=== PATIENT | male | born 1960 | race Caucasian/White ===

== ENCOUNTER 2017-02-10 12:56 | Emergency (ER) | payer MEDICAID ==
[2017-02-10 13:16] VITALS: BP 128/79
[2017-02-10] MEDS ORDERED: Sodium Chloride 0.9% 10 ML Syringe FLUSH PRN (13:31)
[2017-02-10] MEDS ORDERED: MVI, Adult with Vitamin K 10 ML, Thiamine 100 MG, Folic Acid 1 MG in Lactated Ringers 1... IV ONE ×4 (13:32)
[2017-02-10] MEDS ORDERED: LORazepam 2 MG/ML Syringe IVPUSH ONE (13:32)
--- NOTE | 2017-02-10 13:33 | EDM.PDOCBH ---
ED HPI GENERAL MEDICAL PROBLEM - General Chief Complaint: Drug or Alcohol Abuse Stated Complaint: BY AMBULANCE Time Seen by Provider: 02/10/17 13:33 Source of Information: Reports: Patient, RN, RN Notes Reviewed History Limitations: Reports: No Limitations - History of Present Illness INITIAL COMMENTS - FREE TEXT/NARRATIVE: Patient presented with complaint of alcohol withdrawal. He states that he had a "legal consequence" and decided that he needed to quit drinking so he decided to discontinue alcohol. He developed withdrawal symptoms at home yesterday with withdrawal seizure today. He does not recall the seizure, but states that his found him on the floor confused with dry white foam around his mouth. He states that he felt similar to what he had felt to seizure similar in the past so he drank several beers and decided to come to the ER because he still had tremors. Quality: Reports: Same as Previous Episode Severity: Severe Improves with: Reports: None Worsens with: Reports: None Associated Symptoms: Reports: No Other Symptoms - Related Data Allergies Allergy/AdvReac Type Severity Reaction Status Date / Time No Known Allergies Allergy Verified 02/20/14 14:45 Past Medical History HEENT History: Reports: Impaired Vision - Past Surgical History GI Surgical History: Reports: Appendectomy, Hernia Repair/Other Social & Family History - Tobacco Use Smoking Status *Q: Current Every Day Smoker Years of Tobacco use: 40 Packs/Tins Daily: 1 Second Hand Smoke Exposure: Yes - Caffeine Use Caffeine Use: Reports: Soda - Alcohol Use Days Per Week of Alcohol Use: 7 Number of Drinks Per Day: 12 Total Drinks Per Week: 84 - Recreational Drug Use Recreational Drug Use: No Drug Use in Last 12 Months: Yes Recreational Drug Type: Reports: Marijuana/Hashish Recreational Drug Use Frequency: Weekly ED ROS GENERAL - Review of Systems Review Of Systems: ROS reveals no pertinent complaints other than HPI. ED EXAM, BEHAVIORAL HEALTH - Physical Exam Exam: See Below Exam Limited By: No Limitations General Appearance: Alert, WD/WN, No Apparent Distress Eye Exam: Bilateral Eye: Normal Inspection Ears: Normal External Exam, Normal Canal, Hearing Grossly Normal, Normal TMs Nose: Normal Inspection, Normal Mucosa, No Blood Throat/Mouth: Other (dry oral membranes) Head: Atraumatic, Normocephalic Neck: Normal Inspection, Supple, Non-Tender, Full Range of Motion Respiratory/Chest: No Respiratory Distress, Lungs Clear, Normal Breath Sounds, No Accessory Muscle Use, Chest Non-Tender Cardiovascular: Regular Rate, Rhythm, Tachycardia GI/Abdominal: Normal Bowel Sounds, Soft, Non-Tender, No Organomegaly, No Distention, No Abnormal Bruit, No Mass (Male) Exam: Deferred Rectal (Males) Exam: Deferred Back Exam: Normal Inspection, Full Range of Motion, NT Extremities: Normal Inspection, Normal Range of Motion, Non-Tender, Normal Capillary Refill, No Pedal Edema Neurological: Other (bilateral upper extremity tremor) Psychiatric: Alert, Normal Affect, Normal Cognition, Normal Mood, Oriented Skin Exam: Warm, Dry, Intact, Normal color, No rash COURSE, BEHAVIORAL HEALTH COMP - Course Vital Signs: Last Vital Signs Temp 36.4 C 02/10/17 13:15 Pulse 93 02/10/17 13:15 Resp 16 02/10/17 13:15 BP 128/79 02/10/17 13:15 Pulse Ox 98 02/10/17 13:15 Orders, Labs, Meds: Active Orders 24 hr Category Date Time Status Peripheral IV Care [RC] . DIRECTED Care 02/10/17 13:32 Active Sodium Chloride 0.9% [Saline Flush] Med 02/10/17 13:31 Active 10 ml FLUSH ASDIRECTED PRN Peripheral IV Insertion Adult [OM.PC] Stat Oth 02/10/17 13:31 Ordered Medication Orders Sodium Chloride (Saline Flush) 10 ml FLUSH ASDIRECTED PRN PRN Reason: Keep Vein Open Last Admin: 02/10/17 14:04 Dose: 10 ml Laboratory Tests 02/10/17 02/10/17 02/10/17 Range/Units 13:40 13:40 13:40 WBC 6.1 (5.0-10.0) 10^3/uL RBC 4.30 L (4.6-6.2) 10^6/uL Hgb 14.9 (14.0-18.0) g/dL Hct 41.6 (40.0-54.0) % MCV 96.7 (80-100) fL MCH 34.7 H (27.0-34.0) pg MCHC 35.8 H (33.0-35.0) g/dL Plt Count 77 L (150-450) 10^3/uL Neut % (Auto) 59.7 (42.2-75.2) % Lymph % (Auto) 26.3 (20.5-50.1) % Fergus % (Auto) 13.5 H (2-8) % Eos % (Auto) 0.3 L (1.0-3.0) % Baso % (Auto) 0.2 (0.0-1.0) % PT 9.2 (9.0-12.0) SEC INR 0.9 (0.9-1.2) APTT 29.0 (22.0-34.0) SEC Sodium 131 L (135-145) mmol/L Potassium 3.5 L (3.6-5.0) mmol/L Chloride 94 L (101-111) mmol/L Carbon Dioxide 23.0 (21.0-31.0) mmol/L Anion Gap 17.5 BUN 4 L (7-18) mg/dL Creatinine 0.4 L (0.6-1.3) mg/dL Est Cr Clr Drug Dosing TNP Estimated GFR (MDRD) > 60 BUN/Creatinine Ratio 10.00 Glucose 112 H (74-105) mg/dL Calcium 8.6 (8.4-10.2) mg/dl Magnesium 1.5 L (1.8-2.5) mg/dL Total Bilirubin 1.1 H (0.2-1.0) mg/dL GGT 284 H (7-64) IU/L AST 106 H (10-42) IU/L ALT 65 H (10-60) IU/L Alkaline Phosphatase 80 (42-121) IU/L Creatine Kinase 326 H (26-174) IU/L Total Protein 7.1 (6.7-8.2) g/dl Albumin 3.9 (3.2-5.5) g/dl Globulin 3.2 Albumin/Globulin Ratio 1.22 Urine Color (YELLOW) Urine Appearance (CLEAR) Urine pH (5.0-9.0) Ur Specific Riner (1.005-1.030) Urine Protein (NEGATIVE) Urine Glucose (UA) (NEGATIVE) Urine Ketones (NEGATIVE) Urine Occult Blood (NEGATIVE) Urine Nitrite (NEGATIVE) Urine Bilirubin (NEGATIVE) Urine Urobilinogen (0.2-1.0) mg/dL Ur Leukocyte Esterase (NEGATIVE) Urine RBC /HPF Urine WBC (0-5/HPF) /HPF Urine Bacteria (0-FEW/HPF) /HPF Urine Mucus /LPF Salicylates < 4 Urine Opiates Screen (NEGATIVE) Ur Oxycodone Screen (NEGATIVE) Urine Methadone Screen (NEGATIVE) Acetaminophen < 10 Ur Barbiturates Screen (NEGATIVE) U Tricyclic Antidepress (NEGATIVE) Ur Phencyclidine Scrn (NEGATIVE) Ur Amphetamine Screen (NEGATIVE) U Methamphetamines Scrn (NEGATIVE) Urine MDMA Screen (NEGATIVE) U Benzodiazepines Scrn (NEGATIVE) Urine Cocaine Screen (NEGATIVE) U Marijuana (THC) Screen (NEGATIVE) Ethyl Alcohol 255 mg/dL 02/10/17 02/10/17 Range/Units 14:20 14:20 WBC (5.0-10.0) 10^3/uL RBC (4.6-6.2) 10^6/uL Hgb (14.0-18.0) g/dL Hct (40.0-54.0) % MCV (80-100) fL MCH (27.0-34.0) pg MCHC (33.0-35.0) g/dL Plt Count (150-450) 10^3/uL Neut % (Auto) (42.2-75.2) % Lymph % (Auto) (20.5-50.1) % Fergus % (Auto) (2-8) % Eos % (Auto) (1.0-3.0) % Baso % (Auto) (0.0-1.0) % PT (9.0-12.0) SEC INR (0.9-1.2) APTT (22.0-34.0) SEC Sodium (135-145) mmol/L Potassium (3.6-5.0) mmol/L Chloride (101-111) mmol/L Carbon Dioxide (21.0-31.0) mmol/L Anion Gap BUN (7-18) mg/dL Creatinine (0.6-1.3) mg/dL Est Cr Clr Drug Dosing Estimated GFR (MDRD) BUN/Creatinine Ratio Glucose (74-105) mg/dL Calcium (8.4-10.2) mg/dl Magnesium (1.8-2.5) mg/dL Total Bilirubin (0.2-1.0) mg/dL GGT (7-64) IU/L AST (10-42) IU/L ALT (10-60) IU/L Alkaline Phosphatase (42-121) IU/L Creatine Kinase (26-174) IU/L Total Protein (6.7-8.2) g/dl Albumin (3.2-5.5) g/dl Globulin Albumin/Globulin Ratio Urine Color Yellow (YELLOW) Urine Appearance Slightly cloudy (CLEAR) Urine pH 5.5 (5.0-9.0) Ur Specific Riner <= 1.005 (1.005-1.030) Urine Protein Negative (NEGATIVE) Urine Glucose (UA) Negative (NEGATIVE) Urine Ketones Negative (NEGATIVE) Urine Occult Blood Negative (NEGATIVE) Urine Nitrite Negative (NEGATIVE) Urine Bilirubin Negative (NEGATIVE) Urine Urobilinogen 0.2 (0.2-1.0) mg/dL Ur Leukocyte Esterase Negative (NEGATIVE) Urine RBC 0-5 /HPF Urine WBC 0-5 (0-5/HPF) /HPF Urine Bacteria Rare (0-FEW/HPF) /HPF Urine Mucus Rare /LPF Salicylates Urine Opiates Screen Negative (NEGATIVE) Ur Oxycodone Screen Negative (NEGATIVE) Urine Methadone Screen Negative (NEGATIVE) Acetaminophen Ur Barbiturates Screen Negative (NEGATIVE) U Tricyclic Antidepress Negative (NEGATIVE) Ur Phencyclidine Scrn Negative (NEGATIVE) Ur Amphetamine Screen Negative (NEGATIVE) U Methamphetamines Scrn Negative (NEGATIVE) Urine MDMA Screen Negative (NEGATIVE) U Benzodiazepines Scrn Negative (NEGATIVE) Urine Cocaine Screen Negative (NEGATIVE) U Marijuana (THC) Screen Positive H (NEGATIVE) Ethyl Alcohol mg/dL Medications Generic Name Dose Route Start Last Admin Trade Name Freq PRN Reason Stop Dose Admin Sodium Chloride 10 ml 02/10/17 13:31 02/10/17 14:04 Saline Flush FLUSH 10 ml ASDIRECTED PRN Administration Keep Vein Open Discontinued Medications Generic Name Dose Route Start Last Admin Trade Name Freq PRN Reason Stop Dose Admin Multivitamins/Minerals 10 ml/ 1,011.2 mls @ 999 mls/hr 02/10/17 13:32 14:02 Thiamine HCl 100 mg/ Folic IV 02/10/17 14:32 999 mls/hr Acid 1 mg/ Lactated Ringer's .BOLUS ONE Administration Lorazepam 2 mg 02/10/17 13:32 02/10/17 14:03 Ativan IVPUSH 02/10/17 13:33 2 mg ONETIME ONE Administration Departure - Departure Time of Disposition: 15:44 Disposition: DC/Tfer to Acute Hospital 02 Condition: Serious Clinical Impression: Seizure, Alcohol abuse, Marijuana abuse Alcohol withdrawal Qualifiers: Complication of substance-induced condition: with unspecified complication Qualified Code(s): F10.239 - Alcohol dependence with withdrawal, unspecified Alcohol intoxication Qualifiers: Complication of substance-induced condition: with unspecified complication Qualified Code(s): F10.929 - Alcohol use, unspecified with intoxication, unspecified - Discharge Information Forms: ED Department Discharge - My Orders Last 24 Hours: My Active Orders 02/10/17 13:31 Sodium Chloride 0.9% [Saline Flush] 10 ml FLUSH ASDIRECTED PRN Peripheral IV Insertion Adult [OM.PC] Stat 02/10/17 13:32 Peripheral IV Care [RC] . DIRECTED - Assessment/Plan Last 24 Hours: My Active Orders 02/10/17 13:31 Sodium Chloride 0.9% [Saline Flush] 10 ml FLUSH ASDIRECTED PRN Peripheral IV Insertion Adult [OM.PC] Stat 02/10/17 13:32 Peripheral IV Care [RC] . DIRECTED
[2017-02-10 14:06] LABS: CHLORIDE,CL 94 mmol/L (101-111); SODIUM,NA 131 mmol/L (135-145)
[2017-02-10 14:09] LABS: ACETAMINOPHEN < 10
== END 2017-02-10 15:45 ==
LOC: DL.ED 12:56
DX: R56.9 Unspecified convulsions (principal); F10.239 Alcohol dependence with withdrawal, unspecified; F10.229 Alcohol dependence with intoxication, unspecified; F12.10 Cannabis abuse, uncomplicated; H54.7 Unspecified visual loss; F17.210 Nicotine dependence, cigarettes, uncomplicated; Y90.8 Blood alcohol level of 240 mg/100 ml or more
CPT/HCPCS: 36415; 80053; 80305; 81001; 82550; 82977; 83735; 85025; 85610; 85730; 96365; 96375; 99285; G0480; J2060; J3411; J7050; J7120; 99284; J3490

== ENCOUNTER 2020-02-15 16:55 | Inpatient (IN) | payer MEDICARE, OTHER ==
[2020-02-15] MEDS ORDERED: MVI, Adult with Vitamin K 10 ML, Thiamine 100 MG, Folic Acid 1 MG in Lactated Ringers 1... IV ONE ×4 (17:12)
[2020-02-15] MEDS: Sodium Chloride 0.9% 10 ML Syringe FLUSH PRN (17:28)
--- NOTE | 2020-02-15 17:34 | CR ---
PROCEDURE INFORMATION: Exam: XR Chest, 1 View Exam date and time: 02/15/2020 5:13 PM Age: 60 years old Clinical indication: Other: Syncope; Additional info: Recurrent syncope TECHNIQUE: Imaging protocol: XR of the chest Views: 1 view. COMPARISON: No relevant prior studies available. FINDINGS: Lungs: Question mild hyperexpansion and hyperlucency with mild diaphragmatic flattening suggesting possible COPD. Pulmonary vasculature grossly normal. No infiltrates. Pleural space: No pleural effusion. No pneumothorax. Heart/Mediastinum: Heart size normal. No tracheal/mediastinal shift. Bones/joints: No acute osseous abnormalities are identified. IMPRESSION: 1. No acute thoracic process. 2. Suspect COPD.
--- NOTE | 2020-02-15 17:35 | CR ---
PROCEDURE INFORMATION: Exam: XR Right Knee Exam date and time: 02/15/2020 5:19 PM Age: 60 years old Clinical indication: Pain; Knee; Right; Additional info: RT knee pain TECHNIQUE: Imaging protocol: XR Right knee. Views: 1 or 2 views. COMPARISON: No relevant prior studies available. FINDINGS: Bones/joints: No fracture. Normal alignment. No blastic or lytic lesions. No periostitis or osteolysis. No significant joint effusion is present. Joint spaces are well-maintained. Osteopenia. Soft tissues: No gross soft tissue abnormalities. No foreign bodies. Vasculature: Moderate calcific atherosclerosis. IMPRESSION: 1. No acute findings. 2. Osteopenia. 3. Moderate calcific atherosclerosis.
[2020-02-15 17:36] LABS: ANION GAP 7.8 mEq/L (7-13); CHLORIDE,CL 89 mmol/L (98-107); SODIUM,NA 132 mmol/L (136-145)
--- NOTE | 2020-02-15 17:38 | CR ---
PROCEDURE INFORMATION: Exam: XR Right Ankle Exam date and time: 02/15/2020 5:13 PM Age: 60 years old Clinical indication: Pain; Ankle; Right; Additional info: RT ankle injury TECHNIQUE: Imaging protocol: XR Right ankle. Views: 3 or more views. COMPARISON: No relevant prior studies available. FINDINGS: Bones/joints: There is a moderate-sized plantar calcaneal spur without evidence of erosion or fracture. No fractures. No blastic or lytic lesions. No periostitis or osteolysis. The ankle mortise joint is well maintained. No joint effusion. No hindfoot coalition. Soft tissues: Moderate soft tissue swelling around the ankle, most pronounced in the medial and posterior ankle. No radiopaque foreign bodies. Other findings: The visualized hindfoot and midfoot are grossly well aligned. IMPRESSION: 1. No fracture or dislocation. 2. Soft tissue swelling. 3. Moderate plantar calcaneal spurring.
[2020-02-15] MEDS ORDERED: Potassium Chloride 10 MEQ Tab.ER PO ONE (17:44)
[2020-02-15] MEDS ORDERED: Potassium Chloride 10 MEQ in Premix Bag 1 BAG IV ONE ×2 (17:46→17:47)
[2020-02-15] MEDS ORDERED: Magnesium Sulfate/Water 100 ML IV ONE (17:47)
[2020-02-15] MEDS ORDERED: Lidocaine 1% 30 ML SDV ONE (17:48)
--- NOTE | 2020-02-15 18:01 | EDM.PDOC ---
Scribed by Kriss Hardin 02/15/20 1711 for Quincy Aguilar MD ED HPI GENERAL MEDICAL PROBLEM - General Chief Complaint: Lower Extremity Injury/Pain Stated Complaint: AMBULANCE Time Seen by Provider: 02/15/20 16:59 Source of Information: Reports: Patient, EMS, EMS Notes Reviewed, Old Records, RN, RN Notes Reviewed History Limitations: Reports: No Limitations - History of Present Illness INITIAL COMMENTS - FREE TEXT/NARRATIVE: Pt arrives from home home by ambulance with report of recurrent syncope when trying to stand for the past 3 or so days, and now has a swollen right ankle and numbness to the bottom of the right foot. Pt admits to heavy daily alcohol consumption more many years. 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 Denies chest pain, shortness of breath, head injury, neck pain, visual changes, facial droop, slurred speech, difficulty with speech or swallowing, unilateral weakness, fever, chill, N/V, back pain, abdominal pain, bloody, black, or tarry stools. Onset: Unknown/Unsure Duration: Constant, Recurring Location: Reports: Lower Extremity, Right, Generalized Quality: Reports: Other (Denies pain) Severity: Severe Improves with: Reports: Rest Worsens with: Reports: Other (Orthostatic changes) - Related Data Allergies Allergy/AdvReac Type Severity Reaction Status Date / Time No Known Allergies Allergy Verified 02/20/14 14:45 Past Medical History HEENT History: Reports: Impaired Vision - Past Surgical History GI Surgical History: Reports: Appendectomy, Hernia Repair/Other Social & Family History - Family History Family Medical History: Noncontributory - Tobacco Use Smoking Status *Q: Current Every Day Smoker Tobacco Use Within Last Twelve Months: Cigarettes - Caffeine Use Caffeine Use: Reports: Soda - Alcohol Use Alcohol Use History: Yes Days Per Week of Alcohol Use: 7 Number of Drinks Per Day: 10 (Half gallon of hard alcohol every 2 days) Total Drinks Per Week: 70 Date of Last Drink: 02/15/20 Alcohol Use Frequency: Daily - Recreational Drug Use Recreational Drug Use: No Review of Systems - Review of Systems Review Of Systems: Comprehensive ROS is negative, except as noted in HPI. ED EXAM, GENERAL - Physical Exam Exam: See Below Exam Limited By: No Limitations General Appearance: Alert, No Apparent Distress, Thin, Other (Chronically ill appearing, smells of urine.) Eye Exam: Bilateral Eye: EOMI, PERRL Ears: Normal External Exam, Hearing Grossly Normal Nose: Normal Inspection, Normal Mucosa, No Blood Throat/Mouth: Normal Lips, Normal Voice, No Airway Compromise, Other (Dry oral membranes) Head: Atraumatic, Normocephalic Neck: Normal Inspection, Supple, Non-Tender, Full Range of Motion Respiratory/Chest: No Respiratory Distress, No Accessory Muscle Use, Chest Non- Tender, Decreased Breath Sounds, Other (Coarse breath sounds). No: Crackles, Rales, Rhonchi, Wheezing, Stridor Cardiovascular: Regular Rate, Rhythm, Tachycardia GI/Abdominal: Normal Bowel Sounds, Soft, Non-Tender, No Distention, Pelvis Stable, Hepatomegaly. No: Guarding, Rigid, Rebound Back Exam: Full Range of Motion. No: Vertebral Tenderness Extremities: Normal Capillary Refill, Joint Swelling (Right ankle with no visible bruising, redness, or deformity, no increased warmth.), Other (Small round bruise to right knee.) Neurological: Alert, Oriented, Other (Generalized weakness, no focal motor deficits. Subjective numbness to right plantar foot.) Psychiatric: Normal Mood, Flat Affect Skin Exam: Warm, Dry, Intact, No Rash, Ecchymosis (Patches of ecchymosis to B/L upper extremities.), Pallor. No: Cyanosis, Petechiae EKG INTERPRETATION EKG Date: 02/15/20 Time: 17:18 Rhythm: Other (SR with PACs) Rate (Beats/Min): 103 [place]: Normal P-Wave: Present QRS: Normal ST-T: Depressed (in V4 & V5) QT: Prolonged Comparison: NA - No Prior EKG Course - Vital Signs Last Recorded V/S: Last Vital Signs Temp 98.3 F 02/15/20 17:04 Pulse 110 H 02/15/20 17:04 Resp 18 02/15/20 17:04 BP 132/71 02/15/20 17:04 Pulse Ox 96 02/15/20 17:04 Orthostatic Blood Pressure [ 117/63 Standing] Orthostatic Blood Pressure [ 114/69 Sitting] Orthostatic Blood Pressure [ 104/70 Supine] - Orders/Labs/Meds Orders: Active Orders 24 hr Category Date Time Status EKG 12 Lead [EKG Documentation Completion] [RC] STAT Care 02/15/20 17:02 Active Orthostatic Vital Signs [RC] ASDIRECTED Care 02/15/20 17:11 Active Peripheral IV Care [RC] . DIRECTED Care 02/15/20 17:03 Active D Dimer [D-DIMER QUANTITATIVE] [COAG] Stat Lab 02/15/20 17:07 Received DRUG SCREEN URINE BIORAD [URCHEM] Stat Lab 02/15/20 17:03 Ordered UA RFX MOHAN AND CULT IF INDIC [URIN] Stat Lab 02/15/20 17:03 Ordered MVI, Adult with Vitamin K [Infuvite Adult] 10 ml Med 02/15/20 17:12 Active Thiamine [Vitamin B-1] 100 mg Folic Acid 1 mg Lactated Ringers [Ringers, Lactated] 1,000 ml IV .BOLUS Magnesium Sulfate/Water [Magnesium Sulfate in Water Med 02/15/20 17:47 Active Premix] 100 ml IV ONETIME Potassium Chloride [KCl 10 MEQ in Water 100 ML] 10 meq Med 02/15/20 17:46 Active Premix Bag 1 bag IV ONETIME Potassium Chloride [KCl 10 MEQ in Water 100 ML] 10 meq Med 02/15/20 17:47 Active Premix Bag 1 bag IV ONETIME Sodium Chloride 0.9% [Saline Flush] Med 02/15/20 17:03 Active 10 ml FLUSH ASDIRECTED PRN Peripheral IV Insertion Adult [OM.PC] Stat Oth 02/15/20 17:02 Ordered Medication Orders Multivitamins/Minerals 10 ml/Thiamine HCl 100 mg/ Folic Acid 1 mg/ Lactated Ringer's 1,011.2 mls @ 999 mls/hr IV .BOLUS ONE Stop: 02/15/20 18:12 Last Admin: 02/15/20 17:24 Dose: 999 mls/hr Documented by: FARHEEN Potassium Chloride 10 meq/ (Premix) 100 mls @ 100 mls/hr IV ONETIME ONE Stop: 02/15/20 18:45 Potassium Chloride 10 meq/ (Premix) 100 mls @ 100 mls/hr IV ONETIME ONE Stop: 02/15/20 18:46 Magnesium Sulfate (Magnesium Sulfate In Water Premix) 100 mls @ 100 mls/hr IV ONETIME ONE Stop: 02/15/20 18:46 Sodium Chloride (Saline Flush) 10 ml FLUSH ASDIRECTED PRN PRN Reason: Keep Vein Open Last Admin: 02/15/20 17:28 Dose: 10 ml Documented by: FARHEEN Labs: Laboratory Tests 02/15/20 02/15/20 02/15/20 Range/Units 17:07 17:07 17:07 WBC 6.5 (5.0-10.0) 10^3/uL RBC 2.87 L (4.6-6.2) 10^6/uL Hgb 10.6 L D (14.0-18.0) g/dL Hct 28.7 L (40.0-54.0) % MCV 100.0 D (80-100) fL MCH 36.9 H (27.0-34.0) pg MCHC 36.9 H (33.0-35.0) g/dL Plt Count 158 D (150-450) 10^3/uL Neut % (Auto) 68.2 (42.2-75.2) % Lymph % (Auto) 15.9 L (20.5-50.1) % [place] % (Auto) 15.3 H (2-8) % Eos % (Auto) 0.3 L (1.0-3.0) % Baso % (Auto) 0.3 (0.0-1.0) % PT 11.2 (9.0-12.0) SEC INR 1.2 (0.9-1.2) APTT 27.0 (22.0-34.0) SEC Sodium 132 L (136-145) mmol/L Potassium 1.8 L* (3.5-5.1) mmol/L Chloride 89 L (98-107) mmol/L Carbon Dioxide 37 H (21-32) mmol/L Anion Gap 7.8 (7-13) mEq/L BUN 9 (7-18) mg/dL Creatinine 0.78 (0.70-1.30) mg/dL Est Cr Clr Drug Dosing 94.79 mL/min Estimated GFR (MDRD) > 60 BUN/Creatinine Ratio 11.5 (No establ ref range) Glucose 108 H (74-99) mg/dL Calcium 7.4 L (8.5-10.1) mg/dL Magnesium 0.9 L (1.8-2.4) mg/dL Total Bilirubin 2.4 H (0.2-1.0) mg/dL AST 57 H (15-37) U/L ALT 23 (16-63) U/L Alkaline Phosphatase 82 (46-116) U/L Creatine Kinase 326 H (39-308) U/L Troponin I < 0.017 (0.000-0.056) ng/mL Total Protein 6.1 L (6.4-8.2) g/dL Albumin 2.4 L (3.4-5.0) g/dL Globulin 3.7 Albumin/Globulin Ratio 0.65 Ethyl Alcohol 4 (0) mg/dL Meds: Medications Generic Name Dose Route Start Last Admin Trade Name Freq PRN Reason Stop Dose Admin Multivitamins/Minerals 10 ml/ 1,011.2 mls @ 999 mls/hr 02/15/20 17:12 02/15/20 17:24 Thiamine HCl 100 mg/ Folic IV 02/15/20 18:12 999 mls/hr Acid 1 mg/ Lactated Ringer's .BOLUS ONE Administration Potassium Chloride 10 meq/ 100 mls @ 100 mls/hr 02/15/20 17:46 Premix IV 02/15/20 18:45 ONETIME ONE Potassium Chloride 10 meq/ 100 mls @ 100 mls/hr 02/15/20 17:47 Premix IV 02/15/20 18:46 ONETIME ONE Magnesium Sulfate 100 mls @ 100 mls/hr 02/15/20 17:47 Magnesium Sulfate In Water Premix IV 02/15/20 18:46 ONETIME ONE Sodium Chloride 10 ml 02/15/20 17:03 02/15/20 17:28 Saline Flush FLUSH 10 ml ASDIRECTED PRN Administration Keep Vein Open Discontinued Medications Generic Name Dose Route Start Last Admin Trade Name Freq PRN Reason Stop Dose Admin Lidocaine HCl 30 ml 02/15/20 17:48 Xylocaine-Mpf 1% .XX 02/15/20 17:49 ONETIME ONE Potassium Chloride 60 meq 02/15/20 17:44 Klor-Con 10 PO 02/15/20 17:45 ONETIME ONE - Radiology Interpretation Free Text/Narrative:: [facility] Final Radiology Report Call: [phone] assistance Online chat: [email or web address] Name: CARMEN CHATMAN Age: 60Years M Date: 02/15/2020 SSN: -- : 1960 Study: CR CHEST 1V FRONTAL Requesting Physician: QUINCY AGUILAR Images: 1 Addl Studies: Provided Clinical History: recurrent syncope Contrast: Contrast Medium: Contrast Amount: Contrast Method: CONFIDENTIALITY STATEMENT This report is intended only for use by the referring physician, and only in accordance with law. If you received this in error, call [phone]. Page 1 of 1 PROCEDURE INFORMATION: Exam: XR Chest, 1 View Exam date and time: 02/15/2020 5:13 PM Age: 60 years old Clinical indication: Other: Syncope; Additional info: Recurrent syncope TECHNIQUE: Imaging protocol: XR of the chest Views: 1 view. COMPARISON: No relevant prior studies available. FINDINGS: Lungs: Question mild hyperexpansion and hyperlucency with mild diaphragmatic flattening suggesting possible COPD. Pulmonary vasculature grossly normal. No infiltrates. Pleural space: No pleural effusion. No pneumothorax. Heart/Mediastinum: Heart size normal. No tracheal/mediastinal shift. Bones/joints: No acute osseous abnormalities are identified. IMPRESSION: 1. No acute thoracic process. 2. Suspect COPD. Thank you for allowing us to participate in the care of your patient. Dictated and Authenticated by: Ildefonso Martin MD 02/15/2020 5:34 PM Central Time ([place] & [place]) [facility] Final Radiology Report Call: [phone] assistance Online chat: [email or web address] Name: CARMEN CHATMAN Age: 60Years M Date: 02/15/2020 SSN: -- : 1960 Study: CR ANKLE MIN 3V RT Requesting Physician: QUINCY AGUILAR Images: 3 Addl Studies: Provided Clinical History: Rt ankle injury Contrast: Contrast Medium: Contrast Amount: Contrast Method: CONFIDENTIALITY STATEMENT This report is intended only for use by the referring physician, and only in accordance with law. If you received this in error, call [phone]. Page 1 of 1 PROCEDURE INFORMATION: Exam: XR Right Ankle Exam date and time: 02/15/2020 5:13 PM Age: 60 years old Clinical indication: Pain; Ankle; Right; Additional info: RT ankle injury TECHNIQUE: Imaging protocol: XR Right ankle. Views: 3 or more views. COMPARISON: No relevant prior studies available. FINDINGS: Bones/joints: There is a moderate-sized plantar calcaneal spur without evidence of erosion or fracture. No fractures. No blastic or lytic lesions. No periostitis or osteolysis. The ankle mortise joint is well maintained. No joint effusion. No hindfoot coalition. Soft tissues: Moderate soft tissue swelling around the ankle, most pronounced in the medial and posterior ankle. No radiopaque foreign bodies. Other findings: The visualized hindfoot and midfoot are grossly well aligned. IMPRESSION: 1. No fracture or dislocation. 2. Soft tissue swelling. 3. Moderate plantar calcaneal spurring. Thank you for allowing us to participate in the care of your patient. Dictated and Authenticated by: Ildefonso Martin MD 02/15/2020 5:37 PM Central Time ( & Susu) [facility] Final Radiology Report Call: [phone] assistance Online chat: [email or web address] Name: CARMEN CHATMAN Age: 60Years M Date: 02/15/2020 SSN: -- : 1960 Study: CR KNEE 1V OR 2V RT Requesting Physician: QUINCY AGUILAR Images: 2 Addl Studies: Provided Clinical History: Rt knee pain Contrast: Contrast Medium: Contrast Amount: Contrast Method: CONFIDENTIALITY STATEMENT This report is intended only for use by the referring physician, and only in accordance with law. If you received this in error, call [phone]. Page 1 of 1 PROCEDURE INFORMATION: Exam: XR Right Knee Exam date and time: 02/15/2020 5:19 PM Age: 60 years old Clinical indication: Pain; Knee; Right; Additional info: RT knee pain TECHNIQUE: Imaging protocol: XR Right knee. Views: 1 or 2 views. COMPARISON: No relevant prior studies available. FINDINGS: Bones/joints: No fracture. Normal alignment. No blastic or lytic lesions. No periostitis or osteolysis. No significant joint effusion is present. Joint spaces are well-maintained. Osteopenia. Soft tissues: No gross soft tissue abnormalities. No foreign bodies. Vasculature: Moderate calcific atherosclerosis. IMPRESSION: 1. No acute findings. 2. Osteopenia. 3. Moderate calcific atherosclerosis. Thank you for allowing us to participate in the care of your patient. Dictated and Authenticated by: Ildefonso Martin MD 02/15/2020 5:35 PM Central Time ([place] & [place]) [facility] Final Radiology Report Call: [phone] assistance Online chat: [email or web address] Name: CARMEN CHATMAN Age: 60Years M Date: 02/15/2020 SSN: -- : 1960 Study: CT HEAD WO CONT Requesting Physician: QUINCY AGUILAR Images: 145 Addl Studies: Provided Clinical History: Recurrent syncope, no head injury Contrast: Without Contrast Medium: Contrast Amount: Contrast Method: Page 1 of 2 PROCEDURE INFORMATION: Exam: CT Head Without Contrast Exam date and time: 02/15/2020 5:45 PM Age: 60 years old Clinical indication: Syncope and collapse; Additional info: Recurrent syncope, no head injury TECHNIQUE: Imaging protocol: Computed tomography of the head without contrast. Radiation optimization: All CT scans at this facility use at least one of these dose optimization techniques: automated exposure control; mA and/or kV adjustment per patient size (includes targeted exams where dose is matched to clinical indication); or iterative reconstruction. COMPARISON: CT Head wo Cont 02/20/2014 3:32 PM FINDINGS: Brain: Moderate generalized atrophy with mild periventricular white matter ischemic changes consistent with the patient's advanced age. No extra-axial fluid collections. No evidence of acute intracranial hemorrhage. Holguin-white differentiation is well maintained. No evidence of acute or subacute intracranial ischemia/infarct. No intracranial mass lesions. No midline shift or herniation. Ventricles: Ventricles normal. Bones/joints: The calvarium and visualized facial bones are intact. Sinuses: Visualized paranasal sinuses are clear. Mastoid air cells: Visualized mastoid air cells are clear. Orbits: Visualized orbital contents demonstrate no evidence of acute abnormality. Vasculature: Moderate atherosclerotic calcific plaque is identified in the visualized proximal intracranial arterial segments. No asymmetric vascular hyperdensities suggestive of thrombosis are identified. Soft tissues: The scalp and visualized soft tissues demonstrate no acute abnormality. Other findings: The IACs are grossly normal. The sella is grossly normal. CARMEN CHATMAN | Final Radiology Report CONFIDENTIALITY STATEMENT This report is intended only for use by the referring physician, and only in accordance with law. If you received this in error, call [phone]. Page 2 of 2 IMPRESSION: 1. No acute intracranial process. 2. Atrophy and chronic microvascular changes consistent with the patient's advanced age. 3. Moderate calcific atherosclerosis. Thank you for allowing us to participate in the care of your patient. Dictated and Authenticated by: Ildefonso Martin MD 02/15/2020 6:00 PM Central Time ([place] & [place]) - Re-Assessments/Exams Free Text/Narrative Re-Assessment/Exam: 02/15/20 17:57 Risk of alcohol withdrawal discussed with Dr. Lu. Departure - Departure Time of Disposition: 17:55 (admitted to Dr. Lu) Disposition: Admitted As Inpatient 66 Condition: Fair, Serious Clinical Impression: Hypokalemia, Hypomagnesemia, Generalized weakness, Alcohol abuse Syncope Qualifiers: Syncope type: unspecified Qualified Code(s): R55 - Syncope and collapse - Discharge Information *PRESCRIPTION DRUG MONITORING PROGRAM REVIEWED*: No *COPY OF PRESCRIPTION DRUG MONITORING REPORT IN PATIENT JOSE A: No Forms: ED Department Discharge Sepsis Event Note (ED) - Focused Exam Vital Signs: Vital Signs Temp Pulse Resp BP Pulse Ox 02/15/20 17:04 98.3 F 110 H 18 132/71 96 - My Orders Last 24 Hours: My Active Orders 02/15/20 17:02 EKG 12 Lead [EKG Documentation Completion] [RC] STAT Peripheral IV Insertion Adult [OM.PC] Stat 02/15/20 17:03 Peripheral IV Care [RC] . DIRECTED DRUG SCREEN URINE BIORAD [URCHEM] Stat UA RFX MOHAN AND CULT IF INDIC [URIN] Stat Sodium Chloride 0.9% [Saline Flush] 10 ml FLUSH ASDIRECTED PRN 02/15/20 17:07 D Dimer [D-DIMER QUANTITATIVE] [COAG] Stat 02/15/20 17:11 Orthostatic Vital Signs [RC] ASDIRECTED 02/15/20 17:12 MVI, Adult with Vitamin K [Infuvite Adult] 10 ml Thiamine [Vitamin B-1] 100 mg Folic Acid 1 mg Lactated Ringers [Ringers, Lactated] 1,000 ml IV .BOLUS 02/15/20 17:46 Potassium Chloride [KCl 10 MEQ in Water 100 ML] 10 meq Premix Bag 1 bag IV ONETIME 02/15/20 17:47 Magnesium Sulfate/Water [Magnesium Sulfate in Water Premix] 100 ml IV ONETIME Potassium Chloride [KCl 10 MEQ in Water 100 ML] 10 meq Premix Bag 1 bag IV ONETIME - Assessment/Plan Last 24 Hours: My Active Orders 02/15/20 17:02 EKG 12 Lead [EKG Documentation Completion] [RC] STAT Peripheral IV Insertion Adult [OM.PC] Stat 02/15/20 17:03 Peripheral IV Care [RC] . DIRECTED DRUG SCREEN URINE BIORAD [URCHEM] Stat UA RFX MOHAN AND CULT IF INDIC [URIN] Stat Sodium Chloride 0.9% [Saline Flush] 10 ml FLUSH ASDIRECTED PRN 02/15/20 17:07 D Dimer [D-DIMER QUANTITATIVE] [COAG] Stat 02/15/20 17:11 Orthostatic Vital Signs [RC] ASDIRECTED 02/15/20 17:12 MVI, Adult with Vitamin K [Infuvite Adult] 10 ml Thiamine [Vitamin B-1] 100 mg Folic Acid 1 mg Lactated Ringers [Ringers, Lactated] 1,000 ml IV .BOLUS 02/15/20 17:46 Potassium Chloride [KCl 10 MEQ in Water 100 ML] 10 meq Premix Bag 1 bag IV ONETIME 02/15/20 17:47 Magnesium Sulfate/Water [Magnesium Sulfate in Water Premix] 100 ml IV ONETIME Potassium Chloride [KCl 10 MEQ in Water 100 ML] 10 meq Premix Bag 1 bag IV ONETIME I have read and agree with the documentation that has been completed regarding this visit. By signing this record, I attest that the documentation was completed in my physical presence and is an accurate record of the encounter.
[2020-02-15] MEDS ORDERED: Flumazenil 0.1 MG/ML 5 ML MDV IVPUSH PRN (19:01)
[2020-02-15] MEDS ORDERED: Docusate Sodium 100 MG Cap PO PRN (19:07)
[2020-02-15] MEDS ORDERED: Ondansetron 4 MG Tab.DIS PO PRN (19:07)
[2020-02-15] MEDS ORDERED: Ondansetron 4 MG/2 ML SDV IVPUSH PRN (19:07)
[2020-02-15] MEDS ORDERED: Ibuprofen 400 MG Tab PO PRN (19:07)
--- NOTE | 2020-02-15 19:13 | PCM.HP ---
H&P History of Present Illness - General Date of Service: 02/15/20 Admit Problem/Dx: Admission Diagnosis/Problem Admission Diagnosis/Problem Hypokalemia Source of Information: Patient - History of Present Illness Initial Comments - Free Text/Narative: 60-year-old with a history of no chronic disease other than right shoulder weakness. He has been on disability because he cannot use the right arm. He has been drinking heavily about half a gallon of the [employer] the every 2 days. He is drinking during the day and in the evening and gets shaky by the morning. In the past few days prior to admission he has increasing weakness, dizziness when standing. It improves that with sitting down. No associated diarrhea, fever, chills, abdominal pain. He fell multiple times. Has moderate pain and swelling in the right ankle. Eating very little. Lost about 20 pounds in the past few months. - Related Data Allergies/Adverse Reactions: Allergies Allergy/AdvReac Type Severity Reaction Status Date / Time No Known Allergies Allergy Verified 02/15/20 18:21 Home Medications: Home Meds . [No Known Home Meds] 02/15/20 [History] Past Medical History HEENT History: Reports: Impaired Vision Cardiovascular History: Reports: None Respiratory History: Reports: None Gastrointestinal History: Reports: None Genitourinary History: Reports: None Neurological History: Reports: None Psychiatric History: Reports: Addiction Endocrine/Metabolic History: Reports: None Hematologic History: Reports: None Immunologic History: Reports: None Oncologic (Cancer) History: Reports: None Dermatologic History: Reports: None - Infectious Disease History Infectious Disease History: Reports: None - Past Surgical History Cardiovascular Surgical History: Reports: None Respiratory Surgical History: Reports: None GI Surgical History: Reports: Appendectomy, Hernia Repair/Other Neurological Surgical History: Reports: None Musculoskeletal Surgical History: Reports: Shoulder Surgery, Other (See Below) Other Musculoskeletal Surgeries/Procedures:: surgery 2017 - hand and arm still go numb and pt unable to lift a gallon of milk Social & Family History - Family History Family Medical History: Noncontributory - Tobacco Use Smoking Status *Q: Current Every Day Smoker Years of Tobacco use: 10 Packs/Tins Daily: 1 Second Hand Smoke Exposure: No - Caffeine Use Caffeine Use: Reports: Coffee, Energy Drinks, Soda, Tea - Alcohol Use Days Per Week of Alcohol Use: 7 Number of Drinks Per Day: 10 Total Drinks Per Week: 70 Date of Last Drink: 02/14/20 Time of Last Drink: 00:00 - Recreational Drug Use Recreational Drug Use: No H&P Review of Systems - Review of Systems: Review Of Systems: See Below General: Reports: Fever Pulmonary: Denies: Shortness of Breath Cardiovascular: Reports: Lightheadedness. Denies: Chest Pain, Palpitations, Syncope Gastrointestinal: Denies: Abdominal Pain Genitourinary: Denies: Dysuria Musculoskeletal: Denies: Neck Pain Psychiatric: Denies: Confusion, Hallucinations Neurological: Reports: Dizziness, Tremors, Gait Disturbance (Right ankle swelling). Denies: Confusion, Seizure, Syncope Exam - Exam Exam: See Below - Vital Signs Vital Signs: Last Vital Signs Temp 98.3 F 02/15/20 17:04 Pulse 110 H 02/15/20 17:04 Resp 18 02/15/20 17:04 BP 132/71 02/15/20 17:04 Pulse Ox 96 02/15/20 17:04 Orthostatic Blood Pressure [ 117/63 Standing] Orthostatic Blood Pressure [ 114/69 Sitting] Orthostatic Blood Pressure [ 104/70 Supine] Weight: 146 lb 8 oz - Exam General: Alert, Oriented Neck: Supple Lungs: Normal Respiratory Effort, Decreased Breath Sounds Cardiovascular: Regular Rate, Regular Rhythm GI/Abdominal Exam: Normal Bowel Sounds, Soft, Non-Tender Back Exam: Normal Inspection Extremities: Normal Inspection, Leg Pain (r. ankle swlling and tenderness), Other (Limited movements of right shoulder and weakness of right upper extremity including lifting from the shoulder as well as hand intake clinician) Skin: Warm, Dry Neuro Extensive - Mental Status: Alert, Oriented x3, Normal Mood/Affect - Patient Data Lab Results Last 24 hrs: Laboratory Results - last 24 hr 02/15/20 02/15/20 02/15/20 Range/Units 17:07 17:07 17:07 WBC 6.5 (5.0-10.0) 10^3/uL RBC 2.87 L (4.6-6.2) 10^6/uL Hgb 10.6 L D (14.0-18.0) g/dL Hct 28.7 L (40.0-54.0) % MCV 100.0 D (80-100) fL MCH 36.9 H (27.0-34.0) pg MCHC 36.9 H (33.0-35.0) g/dL Plt Count 158 D (150-450) 10^3/uL Neut % (Auto) 68.2 (42.2-75.2) % Lymph % (Auto) 15.9 L (20.5-50.1) % [place] % (Auto) 15.3 H (2-8) % Eos % (Auto) 0.3 L (1.0-3.0) % Baso % (Auto) 0.3 (0.0-1.0) % PT 11.2 (9.0-12.0) SEC INR 1.2 (0.9-1.2) APTT 27.0 (22.0-34.0) SEC D-Dimer, Quantitative (0-400) ng/mL Sodium 132 L (136-145) mmol/L Potassium 1.8 L* (3.5-5.1) mmol/L Chloride 89 L (98-107) mmol/L Carbon Dioxide 37 H (21-32) mmol/L Anion Gap 7.8 (7-13) mEq/L BUN 9 (7-18) mg/dL Creatinine 0.78 (0.70-1.30) mg/dL Est Cr Clr Drug Dosing 94.79 mL/min Estimated GFR (MDRD) > 60 BUN/Creatinine Ratio 11.5 (No establ ref range) Glucose 108 H (74-99) mg/dL Calcium 7.4 L (8.5-10.1) mg/dL Magnesium 0.9 L (1.8-2.4) mg/dL Total Bilirubin 2.4 H (0.2-1.0) mg/dL AST 57 H (15-37) U/L ALT 23 (16-63) U/L Alkaline Phosphatase 82 (46-116) U/L Creatine Kinase 326 H (39-308) U/L Troponin I < 0.017 (0.000-0.056) ng/mL Total Protein 6.1 L (6.4-8.2) g/dL Albumin 2.4 L (3.4-5.0) g/dL Globulin 3.7 Albumin/Globulin Ratio 0.65 Ethyl Alcohol 4 (0) mg/dL 02/15/20 Range/Units 17:07 WBC (5.0-10.0) 10^3/uL RBC (4.6-6.2) 10^6/uL Hgb (14.0-18.0) g/dL Hct (40.0-54.0) % MCV (80-100) fL MCH (27.0-34.0) pg MCHC (33.0-35.0) g/dL Plt Count (150-450) 10^3/uL Neut % (Auto) (42.2-75.2) % Lymph % (Auto) (20.5-50.1) % [place] % (Auto) (2-8) % Eos % (Auto) (1.0-3.0) % Baso % (Auto) (0.0-1.0) % PT (9.0-12.0) SEC INR (0.9-1.2) APTT (22.0-34.0) SEC D-Dimer, Quantitative < 100 (0-400) ng/mL Sodium (136-145) mmol/L Potassium (3.5-5.1) mmol/L Chloride (98-107) mmol/L Carbon Dioxide (21-32) mmol/L Anion Gap (7-13) mEq/L BUN (7-18) mg/dL Creatinine (0.70-1.30) mg/dL Est Cr Clr Drug Dosing mL/min Estimated GFR (MDRD) BUN/Creatinine Ratio (No establ ref range) Glucose (74-99) mg/dL Calcium (8.5-10.1) mg/dL Magnesium (1.8-2.4) mg/dL Total Bilirubin (0.2-1.0) mg/dL AST (15-37) U/L ALT (16-63) U/L Alkaline Phosphatase (46-116) U/L Creatine Kinase (39-308) U/L Troponin I (0.000-0.056) ng/mL Total Protein (6.4-8.2) g/dL Albumin (3.4-5.0) g/dL Globulin Albumin/Globulin Ratio Ethyl Alcohol (0) mg/dL Result Diagrams: 02/15/20 17:07 02/15/20 17:07 - Problem List (1) Alcohol abuse SNOMED Code(s): 96247126 ICD Code: F10.10 - ALCOHOL ABUSE, UNCOMPLICATED Status: Acute Current Visit: No (2) Alcohol intoxication SNOMED Code(s): 62235493 ICD Code: F10.929 - ALCOHOL USE, UNSPECIFIED WITH INTOXICATION, UNSPECIFIED Status: Acute Current Visit: No Qualifiers: Complication of substance-induced condition: with unspecified complication Qualified Code(s): F10.929 - Alcohol use, unspecified with intoxication, unspecified (3) Generalized weakness SNOMED Code(s): 07459719 ICD Code: R53.1 - WEAKNESS Status: Acute Current Visit: No (4) Hypokalemia SNOMED Code(s): 71071245 ICD Code: E87.6 - HYPOKALEMIA Status: Acute Current Visit: No (5) Hypomagnesemia SNOMED Code(s): 154857485 ICD Code: E83.42 - HYPOMAGNESEMIA Status: Acute Current Visit: No Problem List Initiated/Reviewed/Updated: Yes Orders Last 24hrs: Active Orders 24 hr Category Date Time Status Patient Status [ADT] Routine ADT 02/15/20 19:07 Ordered Antiembolic Devices [RC] PER UNIT ROUTINE Care 02/15/20 19:08 Ordered Oxygen Therapy [RC] PRN Care 02/15/20 19:07 Ordered Up With Assistance [RC] ASDIRECTED Care 02/15/20 19:07 Ordered VTE/DVT Education [RC] PER UNIT ROUTINE Care 02/15/20 19:07 Ordered Vital Signs [RC] Q4H Care 02/15/20 19:07 Ordered Regular Diet [DIET] Diet 02/15/20 Breakfast Ordered BASIC METABOLIC PANEL,BMP [CHEM] AM Lab 02/16/20 05:15 Ordered CBC WITH AUTO DIFF [HEME] AM Lab 02/16/20 05:15 Ordered DRUG SCREEN URINE BIORAD [URCHEM] Stat Lab 02/15/20 17:03 Ordered MAGNESIUM [CHEM] AM Lab 02/16/20 05:11 Ordered PHOSPHORUS [CHEM] AM Lab 02/16/20 05:11 Ordered UA RFX MOHAN AND CULT IF INDIC [URIN] Stat Lab 02/15/20 17:03 Ordered Acetaminophen [Tylenol] Med 02/15/20 19:07 Ordered 650 mg PO Q4H PRN Docusate Sodium [Colace] Med 02/15/20 19:07 Ordered 100 mg PO BID PRN Folic Acid Med 02/16/20 09:00 Ordered 1 mg PO DAILY Heparin Sodium Med 02/15/20 22:00 Ordered 5,000 units SUBCUT Q8HR Ibuprofen [Motrin] Med 02/15/20 19:07 Ordered 400 mg PO Q6H PRN LORazepam [Ativan] Med 02/15/20 19:01 Ordered See Protocol IVPUSH .TITRATE PRN LORazepam [Ativan] Med 02/15/20 19:00 Ordered See Protocol PO .TITRATE PRN Multivitamins/Minerals [Vitamins and Minerals] Med 02/16/20 08:00 Ordered 1 tab PO WITHBREAKFAST Ondansetron [Zofran ODT] Med 02/15/20 19:07 Ordered 4 mg PO Q6H PRN Ondansetron [Zofran] Med 02/15/20 19:07 Ordered 4 mg IVPUSH Q6H PRN Potassium Chloride [KCl 10 MEQ in Water 100 ML] 10 meq Med 02/15/20 19:00 Ordered Premix Bag 1 bag IV Q2H Sodium Chloride 0.9% [Saline Flush] Med 02/15/20 17:03 Active 10 ml FLUSH ASDIRECTED PRN Sodium Chloride 0.9% with KCl 20 mEq @ 100 mL/Hr (1000 Med 02/15/20 19:00 Ordered mL) NS + KCl 20mEq/L [Normal Saline with 20 mEq KCl] 1,000 ml IV ASDIRECTED Thiamine [Vitamin B-1] Med 02/16/20 09:00 Ordered 100 mg PO DAILY Zolpidem [Ambien] Med 02/15/20 19:07 Ordered 5 mg PO BEDTIME PRN flumazeniL [Romazicon] Med 02/15/20 19:01 Ordered 0.2 mg IVPUSH ASDIRECTED PRN Antiembolic Hose [OM.PC] Per Unit Routine Oth 02/15/20 19:08 Ordered Peripheral IV Insertion Adult [OM.PC] Stat Oth 02/15/20 17:02 Ordered Resuscitation Status Routine Resus Stat 02/15/20 19:07 Ordered Medication Orders Flumazenil (Romazicon) 0.2 mg IVPUSH ASDIRECTED PRN PRN Reason: Respiratory Depression Folic Acid (Folic Acid) 1 mg PO DAILY ASPEN Potassium Chloride 10 meq/ (Premix) 100 mls @ 50 mls/hr IV Q2H ASPEN Stop: 02/16/20 02:59 Potassium Chloride/Sodium Chloride (Normal Saline With 20 Meq Kcl) 1,000 mls @ 100 mls/hr IV ASDIRECTED ASPEN Lorazepam (Ativan) 0 mg PO .TITRATE PRN; Protocol PRN Reason: [facility] Lorazepam (Ativan) 0 mg IVPUSH .TITRATE PRN; Protocol PRN Reason: [facility] Multivitamins/Minerals (Vitamins And Minerals) 1 tab PO WITHBREAKFAST [facility] Sodium Chloride (Saline Flush) 10 ml FLUSH ASDIRECTED PRN PRN Reason: Keep Vein Open Last Admin: 02/15/20 17:28 Dose: 10 ml Documented by: FARHEEN Thiamine HCl (Vitamin B-1) 100 mg PO DAILY [facility] Assessment/Plan Comment:: 60-year-old who rarely goes to the doctor's. Taking no medication. He has been drinking heavily and daily. Resented with generalized weakness, right ankle pain, multiple falls Generalized weakness Multiple episodes of falling This is likely secondary to combination of alcohol abuse and severe electrolyte abnormalities Severe hypokalemia, hypomagnesemia Give IV fluid Will give IV potassium and magnesium supplement Phosphorus level Monitor on telemetry Acute Alcohol intoxication. We will give the patient IV fluids with IV electrolyte replacement. Chronic Alcohol addiction. Consult Social Work and evaluate for alcohol treatment programs. Chronic alcohol use. Supplement thiamine, folate and multivitamin. High Risk for alcohol withdrawal. Frequent evaluations and titration of Ativan per the [facility] protocol r. ankle pain and swelling no fx on Xray likely ligamental injury symptomatic management and reevaluation Deep venous thrombosis (DVT) prophylaxis will be with subcutaneous heparin.
[2020-02-15] MEDS: NS + KCl 20mEq/L 1,000 ML IV SCH (19:40)
[2020-02-15] MEDS: Potassium Chloride 10 MEQ in Premix Bag 1 BAG IV SCH ×3 (19:46→22:00)
[2020-02-15] MEDS ORDERED: Nystatin Topical Powder 30 GM Bottle TOP PRN (20:46)
[2020-02-15] MEDS: Heparin Sodium 5,000 Units/ML Vial SUBCUT SCH (21:06)
[2020-02-15] MEDS: Nystatin Topical Powder 30 GM Bottle TOP SCH (22:14)
[2020-02-16] MEDS: Potassium Chloride 10 MEQ in Premix Bag 1 BAG IV SCH ×7 (00:01→19:53)
[2020-02-16] MEDS: NS + KCl 20mEq/L 1,000 ML IV SCH ×2 (05:32→15:35)
[2020-02-16] MEDS: Heparin Sodium 5,000 Units/ML Vial SUBCUT SCH ×3 (05:33→21:18)
[2020-02-16 05:56] LABS: ANION GAP 7.5 mEq/L (7-13); CHLORIDE,CL 96 mmol/L (98-107); SODIUM,NA 135 mmol/L (136-145)
[2020-02-16] MEDS: Nystatin Topical Powder 30 GM Bottle TOP SCH ×2 (08:35→21:18)
[2020-02-16] MEDS: Thiamine 100 MG Tab PO SCH (08:35)
[2020-02-16] MEDS: Folic Acid 1 MG Tab PO SCH (08:35)
[2020-02-16] MEDS: Multivitamins, Therapeutic with Minerals Tab PO SCH (08:35)
[2020-02-16] MEDS: Nicotine 14 MG/24 Hr Patch TRDERM SCH (08:36)
[2020-02-16] MEDS: Calcium Carbonate/Vitamin D3 1250 MG-200 Unit Tab PO SCH ×2 (09:36→17:35)
--- NOTE | 2020-02-16 10:19 | PCM.PN ---
- General Info Date of Service: 02/16/20 Subjective Update: Feeling good. No significant tremors. No significant withdrawal symptoms overnight. Has not been out of bed yet. That is afraid of getting up and starting to walk. No chest pain, no shortness of breath. Functional Status: Reports: Pain Controlled, Tolerating Diet - Review of Systems General: Denies: Fever Pulmonary: Denies: Shortness of Breath Cardiovascular: Denies: Chest Pain, Edema Genitourinary: Denies: Dysuria Neurological: Denies: Confusion, Syncope, Tremors - Patient Data Vitals - Most Recent: Last Vital Signs Temp 98.2 F 02/16/20 08:00 Pulse 95 02/16/20 08:00 Resp 20 02/16/20 08:00 BP 105/62 02/16/20 08:00 Pulse Ox 95 02/16/20 08:00 Orthostatic Blood Pressure [ 117/63 Standing] Orthostatic Blood Pressure [ 114/69 Sitting] Orthostatic Blood Pressure [ 104/70 Supine] Weight - Most Recent: 146 lb 8 oz I&O - Last 24 Hours: Intake & Output 02/15/20 02/16/20 02/16/20 22:59 06:59 14:59 Intake Total 1400 1720 240 Output Total 800 345 Balance 600 1375 240 Lab Results Last 24 Hours: Laboratory Results - last 24 hr 02/15/20 02/15/20 02/15/20 Range/Units 17:03 17:03 17:07 WBC 6.5 (5.0-10.0) 10^3/uL RBC 2.87 L (4.6-6.2) 10^6/uL Hgb 10.6 L D (14.0-18.0) g/dL Hct 28.7 L (40.0-54.0) % MCV 100.0 D (80-100) fL MCH 36.9 H (27.0-34.0) pg MCHC 36.9 H (33.0-35.0) g/dL Plt Count 158 D (150-450) 10^3/uL Neut % (Auto) 68.2 (42.2-75.2) % Lymph % (Auto) 15.9 L (20.5-50.1) % [place] % (Auto) 15.3 H (2-8) % Eos % (Auto) 0.3 L (1.0-3.0) % Baso % (Auto) 0.3 (0.0-1.0) % PT (9.0-12.0) SEC INR (0.9-1.2) APTT (22.0-34.0) SEC D-Dimer, Quantitative (0-400) ng/mL Sodium (136-145) mmol/L Potassium (3.5-5.1) mmol/L Chloride (98-107) mmol/L Carbon Dioxide (21-32) mmol/L Anion Gap (7-13) mEq/L BUN (7-18) mg/dL Creatinine (0.70-1.30) mg/dL Est Cr Clr Drug Dosing mL/min Estimated GFR (MDRD) BUN/Creatinine Ratio (No establ ref range) Glucose (74-99) mg/dL Calcium (8.5-10.1) mg/dL Phosphorus (2.6-4.7) mg/dL Magnesium (1.8-2.4) mg/dL Total Bilirubin (0.2-1.0) mg/dL AST (15-37) U/L ALT (16-63) U/L Alkaline Phosphatase (46-116) U/L Creatine Kinase (39-308) U/L Troponin I (0.000-0.056) ng/mL Total Protein (6.4-8.2) g/dL Albumin (3.4-5.0) g/dL Globulin Albumin/Globulin Ratio Urine Color Dark yellow (YELLOW) Urine Appearance Slightly cloudy (CLEAR) Urine pH 6.5 (5.0-9.0) Ur Specific [place] 1.015 (1.005-1.030) Urine Protein Negative (NEGATIVE) Urine Glucose (UA) Negative (NEGATIVE) Urine Ketones Negative (NEGATIVE) Urine Occult Blood Negative (NEGATIVE) Urine Nitrite Negative (NEGATIVE) Urine Bilirubin Small H (NEGATIVE) Urine Urobilinogen >=8.0 H (0.2-1.0) mg/dL Ur Leukocyte Esterase Negative (NEGATIVE) Urine Opiates Screen Negative (NEGATIVE) Ur Oxycodone Screen Negative (NEGATIVE) Urine Methadone Screen Negative (NEGATIVE) Ur Barbiturates Screen Negative (NEGATIVE) U Tricyclic Antidepress Negative (NEGATIVE) Ur Phencyclidine Scrn Negative (NEGATIVE) Ur Amphetamine Screen Negative (NEGATIVE) U Methamphetamines Scrn Negative (NEGATIVE) Urine MDMA Screen Negative (NEGATIVE) U Benzodiazepines Scrn Negative (NEGATIVE) Urine Cocaine Screen Negative (NEGATIVE) U Marijuana (THC) Screen Negative (NEGATIVE) Ethyl Alcohol (0) mg/dL 02/15/20 02/15/20 02/15/20 Range/Units 17:07 17:07 17:07 WBC (5.0-10.0) 10^3/uL RBC (4.6-6.2) 10^6/uL Hgb (14.0-18.0) g/dL Hct (40.0-54.0) % MCV (80-100) fL MCH (27.0-34.0) pg MCHC (33.0-35.0) g/dL Plt Count (150-450) 10^3/uL Neut % (Auto) (42.2-75.2) % Lymph % (Auto) (20.5-50.1) % [place] % (Auto) (2-8) % Eos % (Auto) (1.0-3.0) % Baso % (Auto) (0.0-1.0) % PT 11.2 (9.0-12.0) SEC INR 1.2 (0.9-1.2) APTT 27.0 (22.0-34.0) SEC D-Dimer, Quantitative < 100 (0-400) ng/mL Sodium 132 L (136-145) mmol/L Potassium 1.8 L* (3.5-5.1) mmol/L Chloride 89 L (98-107) mmol/L Carbon Dioxide 37 H (21-32) mmol/L Anion Gap 7.8 (7-13) mEq/L BUN 9 (7-18) mg/dL Creatinine 0.78 (0.70-1.30) mg/dL Est Cr Clr Drug Dosing 94.79 mL/min Estimated GFR (MDRD) > 60 BUN/Creatinine Ratio 11.5 (No establ ref range) Glucose 108 H (74-99) mg/dL Calcium 7.4 L (8.5-10.1) mg/dL Phosphorus (2.6-4.7) mg/dL Magnesium 0.9 L (1.8-2.4) mg/dL Total Bilirubin 2.4 H (0.2-1.0) mg/dL AST 57 H (15-37) U/L ALT 23 (16-63) U/L Alkaline Phosphatase 82 (46-116) U/L Creatine Kinase 326 H (39-308) U/L Troponin I < 0.017 (0.000-0.056) ng/mL Total Protein 6.1 L (6.4-8.2) g/dL Albumin 2.4 L (3.4-5.0) g/dL Globulin 3.7 Albumin/Globulin Ratio 0.65 Urine Color (YELLOW) Urine Appearance (CLEAR) Urine pH (5.0-9.0) Ur Specific [place] (1.005-1.030) Urine Protein (NEGATIVE) Urine Glucose (UA) (NEGATIVE) Urine Ketones (NEGATIVE) Urine Occult Blood (NEGATIVE) Urine Nitrite (NEGATIVE) Urine Bilirubin (NEGATIVE) Urine Urobilinogen (0.2-1.0) mg/dL Ur Leukocyte Esterase (NEGATIVE) Urine Opiates Screen (NEGATIVE) Ur Oxycodone Screen (NEGATIVE) Urine Methadone Screen (NEGATIVE) Ur Barbiturates Screen (NEGATIVE) U Tricyclic Antidepress (NEGATIVE) Ur Phencyclidine Scrn (NEGATIVE) Ur Amphetamine Screen (NEGATIVE) U Methamphetamines Scrn (NEGATIVE) Urine MDMA Screen (NEGATIVE) U Benzodiazepines Scrn (NEGATIVE) Urine Cocaine Screen (NEGATIVE) U Marijuana (THC) Screen (NEGATIVE) Ethyl Alcohol 4 (0) mg/dL 02/16/20 02/16/20 Range/Units 05:35 05:35 WBC 5.1 (5.0-10.0) 10^3/uL RBC 2.36 L (4.6-6.2) 10^6/uL Hgb 8.6 L D (14.0-18.0) g/dL Hct 24.3 L (40.0-54.0) % MCV 103.0 H D (80-100) fL MCH 36.4 H (27.0-34.0) pg MCHC 35.4 H (33.0-35.0) g/dL Plt Count 138 L (150-450) 10^3/uL Neut % (Auto) 57.0 (42.2-75.2) % Lymph % (Auto) 24.8 (20.5-50.1) % [place] % (Auto) 16.8 H (2-8) % Eos % (Auto) 1.0 (1.0-3.0) % Baso % (Auto) 0.4 (0.0-1.0) % PT (9.0-12.0) SEC INR (0.9-1.2) APTT (22.0-34.0) SEC D-Dimer, Quantitative (0-400) ng/mL Sodium 135 L (136-145) mmol/L Potassium 2.5 L (3.5-5.1) mmol/L Chloride 96 L (98-107) mmol/L Carbon Dioxide 34 H (21-32) mmol/L Anion Gap 7.5 (7-13) mEq/L BUN 8 (7-18) mg/dL Creatinine 0.47 L (0.70-1.30) mg/dL Est Cr Clr Drug Dosing 157.10 mL/min Estimated GFR (MDRD) > 60 BUN/Creatinine Ratio (No establ ref range) Glucose 79 (74-99) mg/dL Calcium 6.7 L (8.5-10.1) mg/dL Phosphorus 2.7 (2.6-4.7) mg/dL Magnesium 1.6 L (1.8-2.4) mg/dL Total Bilirubin (0.2-1.0) mg/dL AST (15-37) U/L ALT (16-63) U/L Alkaline Phosphatase (46-116) U/L Creatine Kinase (39-308) U/L Troponin I (0.000-0.056) ng/mL Total Protein (6.4-8.2) g/dL Albumin (3.4-5.0) g/dL Globulin Albumin/Globulin Ratio Urine Color (YELLOW) Urine Appearance (CLEAR) Urine pH (5.0-9.0) Ur Specific [place] (1.005-1.030) Urine Protein (NEGATIVE) Urine Glucose (UA) (NEGATIVE) Urine Ketones (NEGATIVE) Urine Occult Blood (NEGATIVE) Urine Nitrite (NEGATIVE) Urine Bilirubin (NEGATIVE) Urine Urobilinogen (0.2-1.0) mg/dL Ur Leukocyte Esterase (NEGATIVE) Urine Opiates Screen (NEGATIVE) Ur Oxycodone Screen (NEGATIVE) Urine Methadone Screen (NEGATIVE) Ur Barbiturates Screen (NEGATIVE) U Tricyclic Antidepress (NEGATIVE) Ur Phencyclidine Scrn (NEGATIVE) Ur Amphetamine Screen (NEGATIVE) U Methamphetamines Scrn (NEGATIVE) Urine MDMA Screen (NEGATIVE) U Benzodiazepines Scrn (NEGATIVE) Urine Cocaine Screen (NEGATIVE) U Marijuana (THC) Screen (NEGATIVE) Ethyl Alcohol (0) mg/dL Med Orders - Current: Current Medications Acetaminophen (Tylenol) 650 mg PO Q4H PRN PRN Reason: Pain (Mild 1-3)/fever Calcium Carbonate (Calcium Carbonate/Vitamin D 1250 Mg-200 Unit) 1 tab PO BIDMEALS [facility] Last Admin: 02/16/20 09:36 Dose: 1 tab Documented by: Docusate Sodium (Colace) 100 mg PO BID PRN PRN Reason: Constipation Flumazenil (Romazicon) 0.2 mg IVPUSH ASDIRECTED PRN PRN Reason: Respiratory Depression Folic Acid (Folic Acid) 1 mg PO DAILY [facility] Last Admin: 02/16/20 08:35 Dose: 1 mg Documented by: Heparin Sodium (Porcine) (Heparin Sodium) 5,000 units SUBCUT Q8HR [facility] Last Admin: 02/16/20 05:33 Dose: 5,000 units Documented by: Potassium Chloride/Sodium Chloride (Normal Saline With 20 Meq Kcl) 1,000 mls @ 100 mls/hr IV ASDIRECTED [facility] Last Admin: 02/16/20 05:32 Dose: 100 mls/hr Documented by: Potassium Chloride 10 meq/ (Premix) 100 mls @ 50 mls/hr IV Q2H [facility] Stop: 02/16/20 21:29 Last Admin: 02/16/20 09:36 Dose: 50 mls/hr Documented by: Ibuprofen (Motrin) 400 mg PO Q6H PRN PRN Reason: Pain (moderate 4-6) Lorazepam (Ativan) 0 mg PO .TITRATE PRN; Protocol PRN Reason: ciwa Lorazepam (Ativan) 0 mg IVPUSH .TITRATE PRN; Protocol PRN Reason: ciwa Magnesium Oxide (Magnesium Oxide) 500 mg PO BIDMEALS [facility] Stop: 02/16/20 18:01 Last Admin: 02/16/20 09:36 Dose: 500 mg Documented by: Miscellaneous Information (Remove Patch) 1 ea TRDERM DAILY [facility] Last Admin: 02/16/20 08:36 Dose: 1 ea Documented by: Multivitamins/Minerals (Vitamins And Minerals) 1 tab PO WITHBREAKFAST [facility] Last Admin: 02/16/20 08:35 Dose: 1 tab Documented by: Nicotine (Habitrol) 14 mg TRDERM DAILY [facility] Last Admin: 02/16/20 08:36 Dose: 14 mg Documented by: Nystatin (Nystop) 0 gm TOP BID [facility] Last Admin: 02/16/20 08:35 Dose: 1 applic Documented by: Ondansetron HCl (Zofran Odt) 4 mg PO Q6H PRN PRN Reason: nausea, able to take PO Ondansetron HCl (Zofran) 4 mg IVPUSH Q6H PRN PRN Reason: Nausea/Vomiting Sodium Chloride (Saline Flush) 10 ml FLUSH ASDIRECTED PRN PRN Reason: Keep Vein Open Last Admin: 02/15/20 17:28 Dose: 10 ml Documented by: Thiamine HCl (Vitamin B-1) 100 mg PO DAILY [facility] Last Admin: 02/16/20 08:35 Dose: 100 mg Documented by: Zolpidem Tartrate (Ambien) 5 mg PO BEDTIME PRN PRN Reason: Sleep Discontinued Medications Multivitamins/Minerals 10 ml/Thiamine HCl 100 mg/ Folic Acid 1 mg/ Lactated Ringer's 1,011.2 mls @ 999 mls/hr IV .BOLUS ONE Stop: 02/15/20 18:12 Last Infusion: 02/15/20 18:50 Dose: Infused Documented by: Potassium Chloride 10 meq/ (Premix) 100 mls @ 100 mls/hr IV ONETIME ONE Stop: 02/15/20 18:45 Last Admin: 02/15/20 18:04 Dose: 100 mls/hr Documented by: Potassium Chloride 10 meq/ (Premix) 100 mls @ 100 mls/hr IV ONETIME ONE Stop: 02/15/20 18:46 Last Admin: 02/15/20 18:05 Dose: 100 mls/hr Documented by: Magnesium Sulfate (Magnesium Sulfate In Water Premix) 100 mls @ 100 mls/hr IV ONETIME ONE Stop: 02/15/20 18:46 Last Admin: 02/15/20 18:04 Dose: 100 mls/hr Documented by: Potassium Chloride 10 meq/ (Premix) 100 mls @ 50 mls/hr IV Q2H [facility] Stop: 02/16/20 02:59 Last Infusion: 02/16/20 02:05 Dose: Infused Documented by: Lidocaine HCl (Xylocaine-Mpf 1%) 30 ml .XX ONETIME ONE Stop: 02/15/20 17:49 Last Admin: 02/15/20 18:06 Dose: 30 ml Documented by: Potassium Chloride (Klor-Con 10) 60 meq PO ONETIME ONE Stop: 02/15/20 17:45 Last Admin: 02/15/20 18:05 Dose: 60 meq Documented by: - Exam General: Alert, Oriented Neck: Supple Lungs: Clear to Auscultation, Normal Respiratory Effort Cardiovascular: Regular Rate, Regular Rhythm GI/Abdominal Exam: Normal Bowel Sounds, Soft, Non-Tender Extremities: No Pedal Edema Skin: Warm, Dry Neurological: Other (Chronic right upper extremity weakness) Psy/Mental Status: Alert, Normal Affect, Normal Mood Sepsis Event Note - Evaluation Sepsis Screening Result: No Definite Risk - Focused Exam Vital Signs: Vital Signs Temp Pulse Resp BP Pulse Ox 02/16/20 08:00 98.2 F 95 20 105/62 95 02/16/20 04:00 99.1 F 92 20 99/60 93 L 02/16/20 00:50 99.1 F 93 20 99/65 95 - Problem List & Annotations (1) Alcohol abuse SNOMED Code(s): 22179486 Code(s): F10.10 - ALCOHOL ABUSE, UNCOMPLICATED Status: Acute Current Visit: No (2) Alcohol intoxication SNOMED Code(s): 74702902 Code(s): F10.929 - ALCOHOL USE, UNSPECIFIED WITH INTOXICATION, UNSPECIFIED Status: Acute Current Visit: No Qualifiers: Complication of substance-induced condition: with unspecified complication Qualified Code(s): F10.929 - Alcohol use, unspecified with intoxication, unspecified (3) Generalized weakness SNOMED Code(s): 25712964 Code(s): R53.1 - WEAKNESS Status: Acute Current Visit: No (4) Hypokalemia SNOMED Code(s): 31798510 Code(s): E87.6 - HYPOKALEMIA Status: Acute Current Visit: No (5) Hypomagnesemia SNOMED Code(s): 184639218 Code(s): E83.42 - HYPOMAGNESEMIA Status: Acute Current Visit: No - Problem List Review Problem List Initiated/Reviewed/Updated: Yes - My Orders Last 24 Hours: My Active Orders 02/15/20 19:00 LORazepam [Ativan] See Protocol PO .TITRATE PRN NS + KCl 20mEq/L [Normal Saline with 20 mEq KCl] 1,000 ml IV ASDIRECTED 02/15/20 19:01 LORazepam [Ativan] See Protocol IVPUSH .TITRATE PRN flumazeniL [Romazicon] 0.2 mg IVPUSH ASDIRECTED PRN 02/15/20 19:07 Patient Status [ADT] Routine Oxygen Therapy [RC] .PRN Up With Assistance [RC] ASDIRECTED VTE/DVT Education [RC] PER UNIT ROUTINE Vital Signs [RC] 00,04,08,12,16,20 Acetaminophen [Tylenol] 650 mg PO Q4H PRN Docusate Sodium [Colace] 100 mg PO BID PRN Ibuprofen [Motrin] 400 mg PO Q6H PRN Ondansetron [Zofran ODT] 4 mg PO Q6H PRN Ondansetron [Zofran] 4 mg IVPUSH Q6H PRN Zolpidem [Ambien] 5 mg PO BEDTIME PRN Resuscitation Status Routine 02/15/20 19:08 Antiembolic Devices [RC] PER UNIT ROUTINE Antiembolic Hose [OM.PC] Per Unit Routine 02/15/20 19:17 Telemetry Monitoring [Cardiac Monitoring] [RC] 02/15/20 21:00 Nystatin [Nystop] 0 gm TOP BID 02/15/20 22:00 Heparin Sodium 5,000 units SUBCUT Q8HR 02/16/20 08:00 Multivitamins/Minerals [Vitamins and Minerals] 1 tab PO WITHBREAKFAST 02/16/20 09:00 Folic Acid 1 mg PO DAILY Nicotine [Habitrol] 14 mg TRDERM DAILY Remove Patch 1 ea TRDERM DAILY Thiamine [Vitamin B-1] 100 mg PO DAILY 02/16/20 09:30 Potassium Chloride [KCl 10 MEQ in Water 100 ML] 10 meq Premix Bag 1 bag IV Q2H 02/16/20 10:00 Calcium Carbonate/Vitamin D3 [Calcium Carbonate/Vitamin D 1250 MG-200 Unit] 1 tab PO BIDMEALS Magnesium Oxide 500 mg PO BIDMEALS 02/16/20 10:12 OT Evaluation and Treatment [CONS] Routine PT Evaluation and Treatment [CONS] Routine 02/16/20 22:00 BASIC METABOLIC PANEL,BMP [CHEM] Timed 02/17/20 05:11 MAGNESIUM [CHEM] AM PHOSPHORUS [CHEM] AM 02/17/20 05:15 BASIC METABOLIC PANEL,BMP [CHEM] AM CBC WITH AUTO DIFF [HEME] AM - Plan Plan:: 60-year-old who rarely goes to the doctor's. Taking no medication. He has been drinking heavily and daily. Resented with generalized weakness, right ankle pain, multiple falls Generalized weakness Multiple episodes of falling This is likely secondary to combination of alcohol abuse and severe electrolyte abnormalities We'll ask physical and occupational therapy evaluation and treatment Severe hypokalemia, hypomagnesemia Give IV fluid Will give IV potassium and po magnesium supplement Add calcium supplement with vitamin D Monitor on telemetry Acute Alcohol intoxication. Resolved Continue IV fluids with IV electrolyte replacement. Chronic Alcohol addiction. Consult Social Work and evaluate for alcohol treatment programs. Chronic alcohol use. Supplement thiamine, folate and multivitamin. High Risk for alcohol withdrawal. Frequent evaluations and titration of Ativan per the CIWA protocol r. ankle pain and swelling no fx on Xray likely ligamental injury symptomatic management and reevaluation Deep venous thrombosis (DVT) prophylaxis will be with subcutaneous heparin.
[2020-02-16 22:17] LABS: ANION GAP 6.3 mEq/L (7-13); CHLORIDE,CL 98 mmol/L (98-107); SODIUM,NA 133 mmol/L (136-145)
[2020-02-17] MEDS: NS + KCl 20mEq/L 1,000 ML IV SCH ×2 (01:54→16:25)
[2020-02-17] MEDS: LORazepam 1 MG Tab PO PRN ×3 (03:22→19:54)
[2020-02-17] MEDS: Heparin Sodium 5,000 Units/ML Vial SUBCUT SCH ×3 (06:06→21:54)
[2020-02-17 06:26] LABS: ANION GAP 6.3 mEq/L (7-13); CHLORIDE,CL 99 mmol/L (98-107); SODIUM,NA 134 mmol/L (136-145)
[2020-02-17] MEDS: LORazepam 2 MG/ML SDV IVPUSH PRN ×5 (07:27→23:08)
[2020-02-17] MEDS: Sodium Chloride 0.9% 10 ML Syringe FLUSH PRN ×3 (07:28→15:24)
[2020-02-17] MEDS: Calcium Carbonate/Vitamin D3 1250 MG-200 Unit Tab PO SCH ×2 (09:21→18:08)
[2020-02-17] MEDS: Multivitamins, Therapeutic with Minerals Tab PO SCH (09:22)
[2020-02-17] MEDS: Folic Acid 1 MG Tab PO SCH (10:20)
[2020-02-17] MEDS: Thiamine 100 MG Tab PO SCH (10:20)
[2020-02-17] MEDS: Nicotine 14 MG/24 Hr Patch TRDERM SCH (10:23)
[2020-02-17] MEDS: Nystatin Topical Powder 30 GM Bottle TOP SCH ×2 (10:23→20:29)
[2020-02-17] MEDS ORDERED: Loperamide 2 MG Cap PO PRN (11:00)
--- NOTE | 2020-02-17 11:17 | PCM.PN ---
- General Info Date of Service: 02/17/20 Admission Dx/Problem (Free Text): Admission Diagnosis/Problem Admission Diagnosis/Problem Hypokalemia Subjective Update: Developed significant withdrawal symptoms overnight. Had visual and tactile hallucinations, anxiety, tremors Has been treated with Ativan No chest pain, no shortness of breath. Functional Status: Denies: Tolerating Diet (Confused, restless) - Review of Systems General: Denies: Fever Pulmonary: Denies: Shortness of Breath Cardiovascular: Denies: Chest Pain Gastrointestinal: Reports: Diarrhea. Denies: Abdominal Pain, Nausea, Vomiting Neurological: Reports: Confusion, Tremors, Trouble Speaking Psychiatric: Reports: Anxiety, Other (Restless) - Patient Data Vitals - Most Recent: Last Vital Signs Temp 97.1 F 02/17/20 08:00 Pulse 113 H 02/17/20 08:00 Resp 20 02/17/20 08:00 BP 113/67 02/17/20 08:00 Pulse Ox 95 02/17/20 08:00 Orthostatic Blood Pressure [ 117/63 Standing] Orthostatic Blood Pressure [ 114/69 Sitting] Orthostatic Blood Pressure [ 104/70 Supine] Weight - Most Recent: 146 lb 8 oz I&O - Last 24 Hours: Intake & Output 02/16/20 02/17/20 02/17/20 22:59 06:59 14:59 Intake Total 200 Balance 200 Lab Results Last 24 Hours: Laboratory Results - last 24 hr 02/16/20 02/17/20 02/17/20 Range/Units 21:55 05:40 05:40 WBC 6.5 (5.0-10.0) 10^3/uL RBC 2.08 L (4.6-6.2) 10^6/uL Hgb 7.5 L (14.0-18.0) g/dL Hct 22.2 L (40.0-54.0) % MCV 106.7 H D (80-100) fL MCH 36.1 H (27.0-34.0) pg MCHC 33.8 (33.0-35.0) g/dL Plt Count 174 (150-450) 10^3/uL Neut % (Auto) 56.3 (42.2-75.2) % Lymph % (Auto) 23.6 (20.5-50.1) % [place] % (Auto) 18.4 H (2-8) % Eos % (Auto) 0.9 L (1.0-3.0) % Baso % (Auto) 0.8 (0.0-1.0) % Sodium 133 L 134 L (136-145) mmol/L Potassium 3.3 L 3.3 L (3.5-5.1) mmol/L Chloride 98 99 (98-107) mmol/L Carbon Dioxide 32 32 (21-32) mmol/L Anion Gap 6.3 L 6.3 L (7-13) mEq/L BUN 9 7 (7-18) mg/dL Creatinine 0.56 L 0.55 L (0.70-1.30) mg/dL Est Cr Clr Drug Dosing 131.85 134.25 mL/min Estimated GFR (MDRD) > 60 > 60 Glucose 99 74 (74-99) mg/dL Calcium 7.2 L 7.0 L (8.5-10.1) mg/dL Phosphorus 1.4 L (2.6-4.7) mg/dL Magnesium 1.3 L (1.8-2.4) mg/dL Med Orders - Current: Current Medications Acetaminophen (Tylenol) 650 mg PO Q4H PRN PRN Reason: Pain (Mild 1-3)/fever Calcium Carbonate (Calcium Carbonate/Vitamin D 1250 Mg-200 Unit) 1 tab PO BIDMEALS [facility] Last Admin: 02/17/20 09:21 Dose: Not Given Documented by: Docusate Sodium (Colace) 100 mg PO BID PRN PRN Reason: Constipation Flumazenil (Romazicon) 0.2 mg IVPUSH ASDIRECTED PRN PRN Reason: Respiratory Depression Folic Acid (Folic Acid) 1 mg PO DAILY [facility] Last Admin: 02/17/20 10:20 Dose: Not Given Documented by: Heparin Sodium (Porcine) (Heparin Sodium) 5,000 units SUBCUT Q8HR [facility] Last Admin: 02/17/20 06:06 Dose: 5,000 units Documented by: Potassium Chloride/Sodium Chloride (Normal Saline With 20 Meq Kcl) 1,000 mls @ 100 mls/hr IV ASDIRECTED [facility] Last Admin: 02/17/20 01:54 Dose: 100 mls/hr Documented by: Potassium Chloride 10 meq/ (Premix) 100 mls @ 50 mls/hr IV Q2H [facility] Stop: 02/17/20 14:59 Ibuprofen (Motrin) 400 mg PO Q6H PRN PRN Reason: Pain (moderate 4-6) Loperamide HCl (Imodium) 2 mg PO Q6H PRN PRN Reason: Diarrhea Lorazepam (Ativan) 0 mg PO .TITRATE PRN; Protocol PRN Reason: [facility] Last Admin: 02/17/20 04:24 Dose: 2 mg Documented by: Lorazepam (Ativan) 0 mg IVPUSH .TITRATE PRN; Protocol PRN Reason: [facility] Last Admin: 02/17/20 09:28 Dose: 2 mg Documented by: Miscellaneous Information (Remove Patch) 1 ea TRDERM DAILY [facility] Last Admin: 02/17/20 10:24 Dose: 1 ea Documented by: Multivitamins/Minerals (Vitamins And Minerals) 1 tab PO WITHBREAKFAST [facility] Last Admin: 02/17/20 09:22 Dose: Not Given Documented by: Nicotine (Habitrol) 14 mg TRDERM DAILY [facility] Last Admin: 02/17/20 10:23 Dose: 14 mg Documented by: Nystatin (Nystop) 0 gm TOP BID [facility] Last Admin: 02/17/20 10:23 Dose: 1 applic Documented by: Ondansetron HCl (Zofran Odt) 4 mg PO Q6H PRN PRN Reason: nausea, able to take PO Ondansetron HCl (Zofran) 4 mg IVPUSH Q6H PRN PRN Reason: Nausea/Vomiting Sodium Chloride (Saline Flush) 10 ml FLUSH ASDIRECTED PRN PRN Reason: Keep Vein Open Last Admin: 02/17/20 09:29 Dose: 10 ml Documented by: Sodium Phosphate (Neutra-Phos) 250 mg PO BID [facility] Stop: 02/19/20 09:01 Thiamine HCl (Vitamin B-1) 100 mg PO DAILY [facility] Last Admin: 02/17/20 10:20 Dose: Not Given Documented by: Zolpidem Tartrate (Ambien) 5 mg PO BEDTIME PRN PRN Reason: Sleep Discontinued Medications Multivitamins/Minerals 10 ml/Thiamine HCl 100 mg/ Folic Acid 1 mg/ Lactated Ringer's 1,011.2 mls @ 999 mls/hr IV .BOLUS ONE Stop: 02/15/20 18:12 Last Infusion: 02/15/20 18:50 Dose: Infused Documented by: Potassium Chloride 10 meq/ (Premix) 100 mls @ 100 mls/hr IV ONETIME ONE Stop: 02/15/20 18:45 Last Admin: 02/15/20 18:04 Dose: 100 mls/hr Documented by: Potassium Chloride 10 meq/ (Premix) 100 mls @ 100 mls/hr IV ONETIME ONE Stop: 02/15/20 18:46 Last Admin: 02/15/20 18:05 Dose: 100 mls/hr Documented by: Magnesium Sulfate (Magnesium Sulfate In Water Premix) 100 mls @ 100 mls/hr IV ONETIME ONE Stop: 02/15/20 18:46 Last Admin: 02/15/20 18:04 Dose: 100 mls/hr Documented by: Potassium Chloride 10 meq/ (Premix) 100 mls @ 50 mls/hr IV Q2H [facility] Stop: 02/16/20 02:59 Last Infusion: 02/16/20 02:05 Dose: Infused Documented by: Potassium Chloride 10 meq/ (Premix) 100 mls @ 50 mls/hr IV Q2H [facility] Stop: 02/16/20 21:29 Last Admin: 02/16/20 19:53 Dose: 50 mls/hr Documented by: Lidocaine HCl (Xylocaine-Mpf 1%) 30 ml .XX ONETIME ONE Stop: 02/15/20 17:49 Last Admin: 02/15/20 18:06 Dose: 30 ml Documented by: Magnesium Oxide (Magnesium Oxide) 500 mg PO BIDMEALS [facility] Stop: 02/16/20 18:01 Last Admin: 02/16/20 17:35 Dose: 500 mg Documented by: Potassium Chloride (Klor-Con 10) 60 meq PO ONETIME ONE Stop: 02/15/20 17:45 Last Admin: 02/15/20 18:05 Dose: 60 meq Documented by: Sodium Phosphate (Neutra-Phos) 500 mg PO TID [facility] Stop: 02/18/20 09:01 - Exam General: Alert, Other (Restless, not following commands). No: Oriented, Co operative Neck: Supple Lungs: Clear to Auscultation, Normal Respiratory Effort Cardiovascular: Regular Rate, Regular Rhythm GI/Abdominal Exam: Normal Bowel Sounds, Soft, Non-Tender Extremities: No Pedal Edema Skin: Warm, Dry Neurological: Other (Tremors, restlessness, not following commands, hallucinations, confusion) Psy/Mental Status: Hallucinations, Withdrawal Symptoms Sepsis Event Note - Evaluation Sepsis Screening Result: No Definite Risk - Focused Exam Vital Signs: Vital Signs Temp Pulse Resp BP Pulse Ox 02/17/20 08:00 97.1 F 113 H 20 113/67 95 02/17/20 04:00 99.1 F 94 20 118/74 95 02/17/20 00:00 99.1 F 93 20 130/77 97 - Problem List & Annotations (1) Alcohol abuse SNOMED Code(s): 62254110 Code(s): F10.10 - ALCOHOL ABUSE, UNCOMPLICATED Status: Acute Current Visit: No (2) Alcohol intoxication SNOMED Code(s): 62727417 Code(s): F10.929 - ALCOHOL USE, UNSPECIFIED WITH INTOXICATION, UNSPECIFIED Status: Acute Current Visit: No Qualifiers: Complication of substance-induced condition: with unspecified complication Qualified Code(s): F10.929 - Alcohol use, unspecified with intoxication, unspecified (3) Generalized weakness SNOMED Code(s): 41598070 Code(s): R53.1 - WEAKNESS Status: Acute Current Visit: No (4) Hypokalemia SNOMED Code(s): 24849189 Code(s): E87.6 - HYPOKALEMIA Status: Acute Current Visit: No (5) Hypomagnesemia SNOMED Code(s): 089005684 Code(s): E83.42 - HYPOMAGNESEMIA Status: Acute Current Visit: No - Problem List Review Problem List Initiated/Reviewed/Updated: Yes - My Orders Last 24 Hours: My Active Orders 02/17/20 11:00 CLOSTRIDIUM DIFFICILE TOX RFLX [MREF] Routine Loperamide [Imodium] 2 mg PO Q6H PRN Potassium Chloride [KCl 10 MEQ in Water 100 ML] 10 meq Premix Bag 1 bag IV Q2H 02/17/20 11:03 Isolation [COMM] Stat 02/17/20 11:12 MVI, Adult with Vitamin K [Infuvite Adult] 10 ml Folic Acid 1 mg Thiamine [Vitamin B-1] 100 mg Lactated Ringers [Ringers, Lactated] 1,000 ml IV DAILY 02/18/20 05:11 FOLIC ACID [CHEM] AM IRON/TIBC [CHEM] AM MAGNESIUM [CHEM] AM PHOSPHORUS [CHEM] AM VITAMIN B12 [CHEM] AM 02/18/20 05:15 BASIC METABOLIC PANEL,BMP [CHEM] AM CBC WITH AUTO DIFF [HEME] AM 02/18/20 09:00 Phosphorus #1 [Neutra-Phos] 250 mg PO BID - Plan Plan:: 60-year-old who rarely goes to the doctor's. Taking no medication. He has been drinking heavily and daily. Resented with generalized weakness, right ankle pain, multiple falls Generalized weakness Multiple episodes of falling This is likely secondary to combination of alcohol abuse and severe electrolyte abnormalities We'll follow with physical and occupational therapy evaluation and treatment Severe hypokalemia, hypomagnesemia Give IV fluid Continue IV potassium, magnesium, phosphorus supplement Monitor on telemetry Acute Alcohol intoxication. Resolved Continue IV fluids with IV electrolyte replacement. Chronic Alcohol addiction. Consult Social Work and evaluate for alcohol treatment programs. Chronic alcohol use. Supplement thiamine, folate and multivitamin. Acute alcohol withdrawal. Frequent evaluations and titration of Ativan per the CIWA protocol r. ankle pain and swelling no fx on Xray likely ligamental injury symptomatic management and reevaluation Diarrhea Check for C. difficile Give Imodium as needed Anemia No apparent ongoing bleeding, stool is soft but not black Drop is Likely due to hydration Will check iron, B12, folate levels Transfusion Monitor hemoglobin Deep venous thrombosis (DVT) prophylaxis will be with subcutaneous heparin.
[2020-02-17] MEDS ORDERED: Potassium Phosphates 15 MMOLE in Sodium Chloride 0.9% 250 ML IV ONE (12:00)
[2020-02-17] MEDS: Potassium Chloride 10 MEQ in Premix Bag 1 BAG IV SCH ×2 (12:04→14:10)
[2020-02-17] MEDS ORDERED: Phosphorus #1 250 MG Tab PO SCH (14:00)
[2020-02-17] MEDS ORDERED: Magnesium Sulfate/Water 2 GM in Premix Bag 1 BAG IV ONE (15:00)
[2020-02-17] MEDS: Acetaminophen 325 MG Tab PO PRN (15:19)
[2020-02-17] MEDS ORDERED: MVI, Adult with Vitamin K 10 ML, Folic Acid 1 MG, Thiamine 100 MG in Lactated Ringers 1... IV ONE ×4 (16:00)
[2020-02-18] MEDS: NS + KCl 20mEq/L 1,000 ML IV SCH ×3 (02:35→22:15)
[2020-02-18] MEDS: Heparin Sodium 5,000 Units/ML Vial SUBCUT SCH ×3 (05:39→22:06)
[2020-02-18] MEDS: Acetaminophen 325 MG Tab PO PRN ×3 (07:40→22:06)
[2020-02-18 07:43] LABS: ANION GAP 14.7 mEq/L (7-13); CHLORIDE,CL 101 mmol/L (98-107); SODIUM,NA 136 mmol/L (136-145)
[2020-02-18] MEDS: Nicotine 14 MG/24 Hr Patch TRDERM SCH (08:26)
[2020-02-18] MEDS: Calcium Carbonate/Vitamin D3 1250 MG-200 Unit Tab PO SCH ×2 (08:30→17:32)
[2020-02-18] MEDS: LORazepam 1 MG Tab PO PRN ×2 (08:30→22:06)
[2020-02-18] MEDS ORDERED: Phosphorus #1 250 MG Tab PO SCH (09:00)
[2020-02-18] MEDS: Remove Patch (Nicotine) TRDERM SCH (09:12)
--- NOTE | 2020-02-18 10:28 | PCM.PN ---
- General Info Date of Service: 02/18/20 Admission Dx/Problem (Free Text): Admission Diagnosis/Problem Admission Diagnosis/Problem Hypokalemia Subjective Update: significant withdrawal symptoms are still present but appears improving.. Had visual and tactile hallucinations, anxiety, tremors Has been treated with Ativan No chest pain, no shortness of breath. Did have an elevated temperature. No further loose bowel movements Functional Status: Denies: Ambulating - Review of Systems General: Reports: Weakness, Other (Limited due to patient's decreased ability to give answers) Pulmonary: Denies: Shortness of Breath Cardiovascular: Denies: Chest Pain Gastrointestinal: Denies: Abdominal Pain Genitourinary: Denies: Dysuria Neurological: Reports: Confusion, Tremors, Trouble Speaking, Difficulty Walking, Weakness. Denies: Seizure - Patient Data Vitals - Most Recent: Last Vital Signs Temp 101.2 F H 02/18/20 08:00 Pulse 91 02/18/20 08:00 Resp 20 02/18/20 08:00 BP 142/89 H 02/18/20 08:00 Pulse Ox 96 02/18/20 08:00 Orthostatic Blood Pressure [ 117/63 Standing] Orthostatic Blood Pressure [ 114/69 Sitting] Orthostatic Blood Pressure [ 104/70 Supine] Weight - Most Recent: 146 lb 8 oz I&O - Last 24 Hours: Intake & Output 02/17/20 02/18/20 02/18/20 22:59 06:59 14:59 Intake Total 1163 1015 340 Output Total 100 Balance 1063 1015 340 Lab Results Last 24 Hours: Laboratory Results - last 24 hr 02/18/20 02/18/20 02/18/20 Range/Units 06:00 06:00 06:00 WBC 9.0 (5.0-10.0) 10^3/uL RBC 2.46 L (4.6-6.2) 10^6/uL Hgb 9.0 L D (14.0-18.0) g/dL Hct 26.7 L (40.0-54.0) % MCV 108.5 H (80-100) fL MCH 36.6 H (27.0-34.0) pg MCHC 33.7 (33.0-35.0) g/dL Plt Count 205 (150-450) 10^3/uL Neut % (Auto) 66.2 (42.2-75.2) % Lymph % (Auto) 17.4 L (20.5-50.1) % [place] % (Auto) 15.0 H (2-8) % Eos % (Auto) 1.0 (1.0-3.0) % Baso % (Auto) 0.4 (0.0-1.0) % Sodium 136 (136-145) mmol/L Potassium 3.7 (3.5-5.1) mmol/L Chloride 101 (98-107) mmol/L Carbon Dioxide 24 (21-32) mmol/L Anion Gap 14.7 H (7-13) mEq/L BUN 4 L (7-18) mg/dL Creatinine 0.58 L (0.70-1.30) mg/dL Est Cr Clr Drug Dosing 127.30 mL/min Estimated GFR (MDRD) > 60 Glucose 64 L (74-99) mg/dL Calcium 7.5 L (8.5-10.1) mg/dL Phosphorus 2.4 L (2.6-4.7) mg/dL Magnesium 1.6 L (1.8-2.4) mg/dL Iron 42 L (65-175) ug/dL TIBC 161 L (250-450) ug/dL % Saturation 26.1 (20.0-50.0) % Vitamin B12 987 H (193-986) pg/mL Folate 16.3 (8.6-58.9) ng/mL Med Orders - Current: Current Medications Acetaminophen (Tylenol) 650 mg PO Q4H PRN PRN Reason: Pain (Mild 1-3)/fever Last Admin: 02/18/20 07:40 Dose: 650 mg Documented by: Calcium Carbonate (Calcium Carbonate/Vitamin D 1250 Mg-200 Unit) 1 tab PO BIDMEALS [facility] Last Admin: 02/18/20 08:30 Dose: 1 tab Documented by: Flumazenil (Romazicon) 0.2 mg IVPUSH ASDIRECTED PRN PRN Reason: Respiratory Depression Heparin Sodium (Porcine) (Heparin Sodium) 5,000 units SUBCUT Q8HR [facility] Last Admin: 02/18/20 05:39 Dose: 5,000 units Documented by: Potassium Chloride/Sodium Chloride (Normal Saline With 20 Meq Kcl) 1,000 mls @ 100 mls/hr IV ASDIRECTED [facility] Last Admin: 02/18/20 02:35 Dose: 100 mls/hr Documented by: Ibuprofen (Motrin) 400 mg PO Q6H PRN PRN Reason: Pain (moderate 4-6) Loperamide HCl (Imodium) 2 mg PO Q6H PRN PRN Reason: Diarrhea Lorazepam (Ativan) 0 mg PO .TITRATE PRN; Protocol PRN Reason: [facility] Last Admin: 02/18/20 08:30 Dose: 2 mg Documented by: Lorazepam (Ativan) 0 mg IVPUSH .TITRATE PRN; Protocol PRN Reason: [facility] Last Admin: 02/17/20 23:08 Dose: 2 mg Documented by: Magnesium Oxide (Magnesium Oxide) 500 mg PO BIDM [facility] Stop: 02/18/20 18:01 Miscellaneous Information (Remove Patch) 1 ea TRDERM DAILY [facility] Last Admin: 02/18/20 09:12 Dose: Not Given Documented by: Nicotine (Habitrol) 14 mg TRDERM DAILY [facility] Last Admin: 02/18/20 08:26 Dose: 14 mg Documented by: Nystatin (Nystop) 0 gm TOP BID [facility] Last Admin: 02/17/20 20:29 Dose: 1 applic Documented by: Ondansetron HCl (Zofran Odt) 4 mg PO Q6H PRN PRN Reason: nausea, able to take PO Ondansetron HCl (Zofran) 4 mg IVPUSH Q6H PRN PRN Reason: Nausea/Vomiting Sodium Chloride (Saline Flush) 10 ml FLUSH ASDIRECTED PRN PRN Reason: Keep Vein Open Last Admin: 02/17/20 15:24 Dose: 10 ml Documented by: Sodium Phosphate (Neutra-Phos) 500 mg PO BID [facility] Stop: 02/19/20 09:01 Zolpidem Tartrate (Ambien) 5 mg PO BEDTIME PRN PRN Reason: Sleep Discontinued Medications Docusate Sodium (Colace) 100 mg PO BID PRN PRN Reason: Constipation Folic Acid (Folic Acid) 1 mg PO DAILY [facility] Last Admin: 02/17/20 10:20 Dose: Not Given Documented by: Multivitamins/Minerals 10 ml/Thiamine HCl 100 mg/ Folic Acid 1 mg/ Lactated Ringer's 1,011.2 mls @ 999 mls/hr IV .BOLUS ONE Stop: 02/15/20 18:12 Last Infusion: 02/15/20 18:50 Dose: Infused Documented by: Potassium Chloride 10 meq/ (Premix) 100 mls @ 100 mls/hr IV ONETIME ONE Stop: 02/15/20 18:45 Last Admin: 02/15/20 18:04 Dose: 100 mls/hr Documented by: Potassium Chloride 10 meq/ (Premix) 100 mls @ 100 mls/hr IV ONETIME ONE Stop: 02/15/20 18:46 Last Admin: 02/15/20 18:05 Dose: 100 mls/hr Documented by: Magnesium Sulfate (Magnesium Sulfate In Water Premix) 100 mls @ 100 mls/hr IV ONETIME ONE Stop: 02/15/20 18:46 Last Admin: 02/15/20 18:04 Dose: 100 mls/hr Documented by: Potassium Chloride 10 meq/ (Premix) 100 mls @ 50 mls/hr IV Q2H [facility] Stop: 02/16/20 02:59 Last Infusion: 02/16/20 02:05 Dose: Infused Documented by: Potassium Chloride 10 meq/ (Premix) 100 mls @ 50 mls/hr IV Q2H [facility] Stop: 02/16/20 21:29 Last Infusion: 02/17/20 15:08 Dose: Infused Documented by: Potassium Chloride 10 meq/ (Premix) 100 mls @ 50 mls/hr IV Q2H [facility] Stop: 02/17/20 14:59 Last Infusion: 02/17/20 16:21 Dose: Infused Documented by: Potassium Phosphate 15 mmole/ (Sodium Chloride) 255 mls @ 120 mls/hr IV ONETIME ONE Stop: 02/17/20 14:07 Last Infusion: 02/17/20 15:06 Dose: Infused Documented by: Multivitamins/Minerals 10 ml/Folic Acid 1 mg/ Thiamine HCl 100 mg/ Lactated Ringer's 1,011.2 mls @ 999 mls/hr IV DAILY@1200 ONE Stop: 02/17/20 17:00 Last Infusion: 02/17/20 17:22 Dose: 400 mls/hr Documented by: Magnesium Sulfate 2 gm/ Premix 50 mls @ 25 mls/hr IV ONETIME ONE Stop: 02/17/20 16:59 Last Infusion: 08/13/20 17:22 Dose: Infused Documented by: Lidocaine HCl (Xylocaine-Mpf 1%) 30 ml .XX ONETIME ONE Stop: 02/15/20 17:49 Last Admin: 02/15/20 18:06 Dose: 30 ml Documented by: Magnesium Oxide (Magnesium Oxide) 500 mg PO BIDMEALS [facility] Stop: 02/16/20 18:01 Last Admin: 02/16/20 17:35 Dose: 500 mg Documented by: Miscellaneous Information (Remove Patch) 1 ea TRDERM DAILY [facility] Last Admin: 02/17/20 10:24 Dose: 1 ea Documented by: Multivitamins/Minerals (Vitamins And Minerals) 1 tab PO WITHBREAKFAST [facility] Last Admin: 02/17/20 09:22 Dose: Not Given Documented by: Potassium Chloride (Klor-Con 10) 60 meq PO ONETIME ONE Stop: 02/15/20 17:45 Last Admin: 02/15/20 18:05 Dose: 60 meq Documented by: Sodium Phosphate (Neutra-Phos) 500 mg PO TID [facility] Stop: 02/18/20 09:01 Sodium Phosphate (Neutra-Phos) 250 mg PO BID [facility] Stop: 02/19/20 09:01 Last Admin: 02/18/20 08:30 Dose: 250 mg Documented by: Thiamine HCl (Vitamin B-1) 100 mg PO DAILY [facility] Last Admin: 02/17/20 10:20 Dose: Not Given Documented by: - Exam General: Alert. No: Oriented Neck: Supple Lungs: Normal Respiratory Effort, Decreased Breath Sounds Cardiovascular: Regular Rate, Regular Rhythm Extremities: No Pedal Edema Skin: Warm, Dry Neurological: Other (Bilateral upper extremity weakness and tremors more pronounced weakness on the right side.) Psy/Mental Status: Alert, Anxious, Agitated (Episodically), Hallucinations, Withdrawal Symptoms, Other (Restless,) Sepsis Event Note - Evaluation Sepsis Screening Result: Sepsis Risk - Focused Exam Vital Signs: Vital Signs Temp Pulse Resp BP BP Pulse Ox 02/18/20 08:00 101.2 F H 91 20 142/89 H 96 02/18/20 00:00 98 F 86 20 127/89 97 - Problem List & Annotations (1) Alcohol abuse SNOMED Code(s): 73291355 Code(s): F10.10 - ALCOHOL ABUSE, UNCOMPLICATED Status: Acute Current Visit: No (2) Alcohol intoxication SNOMED Code(s): 44201165 Code(s): F10.929 - ALCOHOL USE, UNSPECIFIED WITH INTOXICATION, UNSPECIFIED Status: Acute Current Visit: No Qualifiers: Complication of substance-induced condition: with unspecified complication Qualified Code(s): F10.929 - Alcohol use, unspecified with intoxication, unspecified (3) Generalized weakness SNOMED Code(s): 55801691 Code(s): R53.1 - WEAKNESS Status: Acute Current Visit: No (4) Hypokalemia SNOMED Code(s): 04053106 Code(s): E87.6 - HYPOKALEMIA Status: Acute Current Visit: No (5) Hypomagnesemia SNOMED Code(s): 725933984 Code(s): E83.42 - HYPOMAGNESEMIA Status: Acute Current Visit: No - Problem List Review Problem List Initiated/Reviewed/Updated: Yes - My Orders Last 24 Hours: My Active Orders 02/17/20 11:00 CLOSTRIDIUM DIFFICILE TOX RFLX [MREF] Routine Loperamide [Imodium] 2 mg PO Q6H PRN 02/17/20 11:03 Isolation [COMM] Stat 02/18/20 09:00 Remove Patch 1 ea TRDERM DAILY 02/18/20 10:00 Magnesium Oxide 500 mg PO BIDM 02/18/20 21:00 Phosphorus #1 [Neutra-Phos] 500 mg PO BID 02/19/20 05:11 MAGNESIUM [CHEM] AM PHOSPHORUS [CHEM] AM 02/19/20 05:15 BASIC METABOLIC PANEL,BMP [CHEM] AM CBC WITH AUTO DIFF [HEME] AM - Plan Plan:: 60-year-old who rarely goes to the doctor's. Taking no medication. He has been drinking heavily and daily. Resented with generalized weakness, right ankle pain, multiple falls Generalized weakness Multiple episodes of falling This is likely secondary to combination of alcohol abuse and severe electrolyte abnormalities Manage acute withdrawal symptoms We'll follow with physical and occupational therapy evaluation and treatment Severe hypokalemia, hypomagnesemia Continue IV fluid Continue IV potassium, oral magnesium, phosphorus supplement Monitor on telemetry Acute Alcohol intoxication. Resolved Continue IV fluids with IV electrolyte replacement. Chronic Alcohol addiction. Consult Social Work and evaluate for alcohol treatment programs. Chronic alcohol use. Supplement thiamine, folate and multivitamin. Acute alcohol withdrawal. Frequent evaluations and titration of Ativan per the CIWA protocol r. ankle pain and swelling no fx on Xray likely ligamental injury symptomatic management and reevaluation Diarrhea Appears improved Check for C. difficile Give Imodium as needed Fever Will obtain urinalysis, chest x-ray Concern for atelectasis, poor candidate to use IS in his current mental status hold abx now Anemia No apparent ongoing bleeding, stool is soft but not black Drop was Likely due to hydration low iron, normal B12, folate levels hold Transfusion Monitor hemoglobin follow as out pt Deep venous thrombosis (DVT) prophylaxis will be with subcutaneous heparin.
[2020-02-18] MEDS: Nystatin Topical Powder 30 GM Bottle TOP SCH ×2 (12:27→22:06)
--- NOTE | 2020-02-18 13:06 | CR ---
EXAMINATION: Chest 1V Frontal SEX: Male AGE: 60 years CLINICAL HISTORY: 60-year-old hospitalized male with FEVER. Interpretation: (upright AP chest) 1. Coarse accentuation of the perihilar lung markings without new focal lobar consolidation (infiltrate). 2. Normal cardiac silhouette and pulmonary vascularity. No vascular congestion, cephalization of flow, alveolar edema or dependent pleural fluid accumulation (effusion). External court monitor leads. 3. Bony thorax and midline tracheal bronchial airway unremarkable. 4. No lung mass or hilar lymphadenopathy. 5. No atelectasis/collapse. 6. No pneumothorax or pneumomediastinum. No free subdiaphragmatic air. CONCLUSION: No acute new cardiopulmonary abnormality since recent comparison film, 15 February 2020.
[2020-02-18] MEDS: Phosphorus #1 250 MG Tab PO SCH (22:06)
[2020-02-19] MEDS: Heparin Sodium 5,000 Units/ML Vial SUBCUT SCH ×3 (06:29→21:35)
[2020-02-19 07:27] LABS: ANION GAP 11.6 mEq/L (7-13); CHLORIDE,CL 102 mmol/L (98-107); SODIUM,NA 137 mmol/L (136-145)
[2020-02-19] MEDS: NS + KCl 20mEq/L 1,000 ML IV SCH ×2 (08:26→18:26)
[2020-02-19] MEDS: Nystatin Topical Powder 30 GM Bottle TOP SCH ×2 (08:26→21:35)
[2020-02-19] MEDS: Phosphorus #1 250 MG Tab PO SCH (08:27)
[2020-02-19] MEDS: Calcium Carbonate/Vitamin D3 1250 MG-200 Unit Tab PO SCH ×2 (08:28→17:56)
[2020-02-19] MEDS: Nicotine 14 MG/24 Hr Patch TRDERM SCH (08:28)
[2020-02-19] MEDS: Acetaminophen 325 MG Tab PO PRN (08:31)
[2020-02-19] MEDS: Remove Patch (Nicotine) TRDERM SCH (09:00)
--- NOTE | 2020-02-19 11:06 | PCM.PN ---
- General Info Date of Service: 02/19/20 Admission Dx/Problem (Free Text): Admission Diagnosis/Problem Admission Diagnosis/Problem Hypokalemia/acute alcohol withdrawal symptom Subjective Update: Pt has significant withdrawal symptoms are still present but appears im proving.. Had visual and tactile hallucinations over the night , anxiety, tremors. getting treated with Ativan No chest pain, no shortness of breath. Did have an elevated temperature last night but better now, No further loose bowel movements and has no appetite Functional Status: Reports: Pain Controlled, Tolerating Diet, Urinating - Review of Systems General: Reports: Fever (over the night ( very low grade)), Weakness, Appetite (not good). Denies: Chills HEENT: Denies: Headaches, Sinus Congestion, Sore Throat, Visual Changes Pulmonary: Denies: Shortness of Breath, Cough, Sputum, Wheezing Cardiovascular: Denies: Chest Pain, Edema, Lightheadedness Gastrointestinal: Reports: Decreased Appetite. Denies: Abdominal Pain, Nausea, Vomiting Genitourinary: Denies: Dysuria, Frequency, Burning, Flank Pain Musculoskeletal: Denies: Neck Pain, Shoulder Pain, Joint Swelling Skin: Denies: Cyanosis, Jaundice, Bruising Neurological: Reports: Tremors, Weakness. Denies: Confusion, Numbness Psychiatric: Reports: Hallucinations. Denies: Confusion, Anxiety, Agitation - Patient Data Vitals - Most Recent: Last Vital Signs Temp 36.9 C 02/19/20 08:49 Pulse 83 02/19/20 08:49 Resp 20 02/19/20 08:49 BP 135/82 02/19/20 08:49 Pulse Ox 98 02/19/20 08:49 Orthostatic Blood Pressure [ 117/63 Standing] Orthostatic Blood Pressure [ 114/69 Sitting] Orthostatic Blood Pressure [ 104/70 Supine] Weight - Most Recent: 66.451 kg I&O - Last 24 Hours: Intake & Output 02/18/20 02/19/20 02/19/20 22:59 06:59 14:59 Intake Total 490 1540 Balance 490 1540 Lab Results Last 24 Hours: Laboratory Results - last 24 hr 02/18/20 02/19/20 02/19/20 Range/Units 11:54 06:30 06:30 WBC 7.4 (5.0-10.0) 10^3/uL RBC 2.50 L (4.6-6.2) 10^6/uL Hgb 9.1 L (14.0-18.0) g/dL Hct 27.1 L (40.0-54.0) % MCV 108.4 H (80-100) fL MCH 36.4 H (27.0-34.0) pg MCHC 33.6 (33.0-35.0) g/dL Plt Count 267 (150-450) 10^3/uL Neut % (Auto) 61.7 (42.2-75.2) % Lymph % (Auto) 21.0 (20.5-50.1) % Trigg % (Auto) 16.4 H (2-8) % Eos % (Auto) 0.5 L (1.0-3.0) % Baso % (Auto) 0.4 (0.0-1.0) % Sodium 137 (136-145) mmol/L Potassium 3.6 (3.5-5.1) mmol/L Chloride 102 (98-107) mmol/L Carbon Dioxide 27 (21-32) mmol/L Anion Gap 11.6 (7-13) mEq/L BUN 4 L (7-18) mg/dL Creatinine 0.58 L (0.70-1.30) mg/dL Est Cr Clr Drug Dosing 127.30 mL/min Estimated GFR (MDRD) > 60 Glucose 76 (74-99) mg/dL Calcium 7.6 L (8.5-10.1) mg/dL Phosphorus 3.3 (2.6-4.7) mg/dL Magnesium 1.5 L (1.8-2.4) mg/dL Urine Color Yellow (YELLOW) Urine Appearance Slightly cloudy (CLEAR) Urine pH 8.5 (5.0-9.0) Ur Specific [place] 1.025 (1.005-1.030) Urine Protein Negative (NEGATIVE) Urine Glucose (UA) Negative (NEGATIVE) Urine Ketones 40 H (NEGATIVE) Urine Occult Blood Negative (NEGATIVE) Urine Nitrite Negative (NEGATIVE) Urine Bilirubin Negative (NEGATIVE) Urine Urobilinogen 1.0 (0.2-1.0) mg/dL Ur Leukocyte Esterase Negative (NEGATIVE) Urine RBC 0-5 /HPF Urine WBC 0-5 (0-5/HPF) /HPF Ur Epithelial Cells Rare (NOT SEEN) /HPF Amorphous Sediment Occasional (NOT SEEN) /HPF Urine Bacteria Rare (0-FEW/HPF) /HPF Urine Mucus Few H (NOT SEEN) /LPF Brown Results Last 24 Hours: Microbiology 02/18/20 11:54 Urine Culture - Preliminary Urine, Clean Catch NO GROWTH AFTER 1 DAY Med Orders - Current: Current Medications Acetaminophen (Tylenol) 650 mg PO Q4H PRN PRN Reason: Pain (Mild 1-3)/fever Last Admin: 02/19/20 08:31 Dose: 650 mg Documented by: Calcium Carbonate (Calcium Carbonate/Vitamin D 1250 Mg-200 Unit) 1 tab PO BIDMEALS [facility] Last Admin: 02/19/20 08:28 Dose: 1 tab Documented by: Flumazenil (Romazicon) 0.2 mg IVPUSH ASDIRECTED PRN PRN Reason: Respiratory Depression Heparin Sodium (Porcine) (Heparin Sodium) 5,000 units SUBCUT Q8HR [facility] Last Admin: 02/19/20 06:29 Dose: 5,000 units Documented by: Potassium Chloride/Sodium Chloride (Normal Saline With 20 Meq Kcl) 1,000 mls @ 100 mls/hr IV ASDIRECTED [facility] Last Admin: 02/19/20 08:26 Dose: 100 mls/hr Documented by: Ibuprofen (Motrin) 400 mg PO Q6H PRN PRN Reason: Pain (moderate 4-6) Loperamide HCl (Imodium) 2 mg PO Q6H PRN PRN Reason: Diarrhea Lorazepam (Ativan) 0 mg PO .TITRATE PRN; Protocol PRN Reason: [facility] Last Admin: 02/18/20 22:06 Dose: 2 mg Documented by: Lorazepam (Ativan) 0 mg IVPUSH .TITRATE PRN; Protocol PRN Reason: citx Last Admin: 02/17/20 23:08 Dose: 2 mg Documented by: Miscellaneous Information (Remove Patch) 1 ea TRDERM DAILY [facility] Last Admin: 02/18/20 09:12 Dose: Not Given Documented by: Nicotine (Habitrol) 14 mg TRDERM DAILY [facility] Last Admin: 02/19/20 08:28 Dose: 14 mg Documented by: Nystatin (Nystop) 0 gm TOP BID [facility] Last Admin: 02/19/20 08:26 Dose: 1 applic Documented by: Ondansetron HCl (Zofran Odt) 4 mg PO Q6H PRN PRN Reason: nausea, able to take PO Ondansetron HCl (Zofran) 4 mg IVPUSH Q6H PRN PRN Reason: Nausea/Vomiting Sodium Chloride (Saline Flush) 10 ml FLUSH ASDIRECTED PRN PRN Reason: Keep Vein Open Last Admin: 02/17/20 15:24 Dose: 10 ml Documented by: Zolpidem Tartrate (Ambien) 5 mg PO BEDTIME PRN PRN Reason: Sleep Discontinued Medications Docusate Sodium (Colace) 100 mg PO BID PRN PRN Reason: Constipation Folic Acid (Folic Acid) 1 mg PO DAILY [facility] Last Admin: 02/17/20 10:20 Dose: Not Given Documented by: Multivitamins/Minerals 10 ml/Thiamine HCl 100 mg/ Folic Acid 1 mg/ Lactated Ringer's 1,011.2 mls @ 999 mls/hr IV .BOLUS ONE Stop: 02/15/20 18:12 Last Infusion: 02/15/20 18:50 Dose: Infused Documented by: Potassium Chloride 10 meq/ (Premix) 100 mls @ 100 mls/hr IV ONETIME ONE Stop: 02/15/20 18:45 Last Admin: 02/15/20 18:04 Dose: 100 mls/hr Documented by: Potassium Chloride 10 meq/ (Premix) 100 mls @ 100 mls/hr IV ONETIME ONE Stop: 02/15/20 18:46 Last Admin: 02/15/20 18:05 Dose: 100 mls/hr Documented by: Magnesium Sulfate (Magnesium Sulfate In Water Premix) 100 mls @ 100 mls/hr IV ONETIME ONE Stop: 02/15/20 18:46 Last Admin: 02/15/20 18:04 Dose: 100 mls/hr Documented by: Potassium Chloride 10 meq/ (Premix) 100 mls @ 50 mls/hr IV Q2H [facility] Stop: 02/16/20 02:59 Last Infusion: 02/16/20 02:05 Dose: Infused Documented by: Potassium Chloride 10 meq/ (Premix) 100 mls @ 50 mls/hr IV Q2H [facility] Stop: 02/16/20 21:29 Last Infusion: 02/17/20 15:08 Dose: Infused Documented by: Potassium Chloride 10 meq/ (Premix) 100 mls @ 50 mls/hr IV Q2H [facility] Stop: 02/17/20 14:59 Last Infusion: 02/17/20 16:21 Dose: Infused Documented by: Potassium Phosphate 15 mmole/ (Sodium Chloride) 255 mls @ 120 mls/hr IV ONETIME ONE Stop: 02/17/20 14:07 Last Infusion: 02/17/20 15:06 Dose: Infused Documented by: Multivitamins/Minerals 10 ml/Folic Acid 1 mg/ Thiamine HCl 100 mg/ Lactated Ringer's 1,011.2 mls @ 999 mls/hr IV DAILY@1200 ONE Stop: 02/17/20 17:00 Last Infusion: 02/17/20 17:22 Dose: 400 mls/hr Documented by: Magnesium Sulfate 2 gm/ Premix 50 mls @ 25 mls/hr IV ONETIME ONE Stop: 02/17/20 16:59 Last Infusion: 02/17/20 17:22 Dose: Infused Documented by: Lidocaine HCl (Xylocaine-Mpf 1%) 30 ml .XX ONETIME ONE Stop: 02/15/20 17:49 Last Admin: 02/15/20 18:06 Dose: 30 ml Documented by: Magnesium Oxide (Magnesium Oxide) 500 mg PO BIDMEALS [facility] Stop: 02/16/20 18:01 Last Admin: 02/16/20 17:35 Dose: 500 mg Documented by: Magnesium Oxide (Magnesium Oxide) 500 mg PO BIDMEALS [facility] Stop: 02/18/20 18:01 Last Admin: 02/18/20 17:32 Dose: 500 mg Documented by: Miscellaneous Information (Remove Patch) 1 ea TRDERM DAILY [facility] Last Admin: 02/17/20 10:24 Dose: 1 ea Documented by: Multivitamins/Minerals (Vitamins And Minerals) 1 tab PO WITHBREAKFAST [facility] Last Admin: 02/17/20 09:22 Dose: Not Given Documented by: Potassium Chloride (Klor-Con 10) 60 meq PO ONETIME ONE Stop: 02/15/20 17:45 Last Admin: 02/15/20 18:05 Dose: 60 meq Documented by: Sodium Phosphate (Neutra-Phos) 500 mg PO TID [facility] Stop: 02/18/20 09:01 Sodium Phosphate (Neutra-Phos) 250 mg PO BID [facility] Stop: 02/19/20 09:01 Last Admin: 02/18/20 08:30 Dose: 250 mg Documented by: Sodium Phosphate (Neutra-Phos) 500 mg PO BID [facility] Stop: 02/19/20 09:01 Last Admin: 02/19/20 08:27 Dose: 500 mg Documented by: Thiamine HCl (Vitamin B-1) 100 mg PO DAILY [facility] Last Admin: 02/17/20 10:20 Dose: Not Given Documented by: - Exam Quality Assessment: DVT Prophylaxis. No: Supplemental Oxygen, Urine Catheter General: Alert, Oriented, Cooperative, No Acute Distress HEENT: Pupils Equal, Pupils Reactive, EOMI, Mucous Membr. Moist/[place] Neck: Supple, No JVD, No Thyromegaly Lungs: Clear to Auscultation, Normal Respiratory Effort Cardiovascular: Regular Rate, Regular Rhythm, Murmurs GI/Abdominal Exam: Normal Bowel Sounds, Soft, Non-Tender. No: Rigid, Rebound (Male) Exam: Deferred Back Exam: Normal Inspection Extremities: Normal Inspection, No Pedal Edema Skin: Warm, Dry, Intact Neurological: No New Focal Deficit Psy/Mental Status: Alert, Normal Affect, Normal Mood Sepsis Event Note - Evaluation Sepsis Screening Result: No Definite Risk - Focused Exam Vital Signs: Vital Signs Temp Pulse Resp BP Pulse Ox 02/19/20 08:49 36.9 C 83 20 135/82 98 - Problem List Review Problem List Initiated/Reviewed/Updated: Yes - Plan Plan:: 60-year-old who rarely goes to the doctor's. Taking no medication. He has been drinking heavily and daily. He came to ER with generalized weakness, right ankle pain, multiple falls, admitted for acute alcohol withdrawal symptom Impression and Plan: 1. Generalized weakness/poor health maintenance - He had Multiple episodes of falling - This is likely secondary to combination of alcohol abuse and severe electrolyte abnormalities - Manage acute withdrawal symptoms ( on CIWA protocol) - physical and occupational therapy evaluating the pt 2. Severe hypokalemia, hypomagnesemia: this secondary to not eating proper diet and only drinking alcohol - He has received IV potassium, oral magnesium, phosphorus supplement -His potassium acceptable and magnesium is still low, phophorus is acceptable -Will give magnesium sulfate 2 gm IV X 1 dose now 3. Acute Alcohol intoxication. : Resolved - Continue IV fluids with potassium -recheck renal panel again in AM 4. Chronic Alcohol addiction. - Social Work is evaluate for alcohol treatment programs. 5. Right . ankle pain and swelling - Noted no fracture on Xray -symptomatic management and pain control 6. Diarrhea: Appears improved - Give Imodium as needed 7 . Fever; Over the night had low grade fever but not during the day -Urine culture showing no growth Concern for atelectasis, poor candidate to use IS in his current mental status 8. Anemia of chronic illness: No apparent ongoing bleeding, stool is soft but not black Drop was Likely due to hydration -Has normal iron saturation , normal B12, folate levels -Will transfuse if Hgb is <8 g/dl 9. Deep venous thrombosis (DVT) prophylaxis will be with subcutaneous heparin.
[2020-02-19] MEDS ORDERED: Magnesium Sulfate/D5W 2 GM in Premix Bag 1 BAG IV ONE (11:13)
[2020-02-19] MEDS: Sodium Chloride 0.9% 10 ML Syringe FLUSH PRN (11:24)
[2020-02-19] MEDS: Zolpidem 5 MG Tab PO PRN (21:51)
[2020-02-20] MEDS: NS + KCl 20mEq/L 1,000 ML IV SCH (04:46)
[2020-02-20] MEDS: Heparin Sodium 5,000 Units/ML Vial SUBCUT SCH ×3 (06:10→21:45)
[2020-02-20 07:11] LABS: CHLORIDE,CL 103 mmol/L (98-107); SODIUM,NA 137 mmol/L (136-145)
[2020-02-20] MEDS: Calcium Carbonate/Vitamin D3 1250 MG-200 Unit Tab PO SCH ×2 (08:54→17:27)
[2020-02-20] MEDS: Nicotine 14 MG/24 Hr Patch TRDERM SCH (08:54)
[2020-02-20] MEDS: Remove Patch (Nicotine) TRDERM SCH (08:55)
[2020-02-20] MEDS: Nystatin Topical Powder 30 GM Bottle TOP SCH ×2 (08:55→21:44)
[2020-02-20] MEDS ORDERED: Magnesium Sulfate/Water 2 GM in Premix Bag 1 BAG IV ONE (09:23)
[2020-02-20] MEDS: Sodium Chloride 0.9% 10 ML Syringe FLUSH PRN (10:11)
--- NOTE | 2020-02-20 12:27 | PCM.PN ---
- General Info Date of Service: 02/20/20 Admission Dx/Problem (Free Text): Admission Diagnosis/Problem Admission Diagnosis/Problem Hypokalemia/acute alcohol withdrawal symptom Subjective Update: Pt has significant withdrawal symptoms and has improved significantly . Had visual and tactile hallucinations in past night but not last night , No chest pain, no shortness of breath. No more fever and No further loose bowel movements and his appetite is good Functional Status: Reports: Pain Controlled, Tolerating Diet, Ambulating (with assistance), Urinating - Review of Systems General: Reports: Weakness, Malaise, Appetite (good). Denies: Fever, Chills HEENT: Denies: Sinus Congestion, Sore Throat, Visual Changes Pulmonary: Denies: Shortness of Breath, Cough, Sputum, Wheezing Cardiovascular: Denies: Chest Pain, Edema, Lightheadedness Gastrointestinal: Denies: Abdominal Pain, Diarrhea, Nausea, Vomiting Genitourinary: Denies: Dysuria, Burning, Urgency, Flank Pain Musculoskeletal: Denies: Neck Pain, Shoulder Pain, Foot Pain Skin: Denies: Cyanosis, Jaundice, Bruising, Rash Neurological: Reports: Weakness. Denies: Confusion, Numbness, Tremors Psychiatric: Denies: Confusion, Anxiety - Patient Data Vitals - Most Recent: Last Vital Signs Temp 36.9 C 02/20/20 08:17 Pulse 100 02/20/20 08:17 Resp 20 02/20/20 08:17 BP 134/87 02/20/20 08:17 Pulse Ox 97 02/20/20 08:17 Orthostatic Blood Pressure [ 117/63 Standing] Orthostatic Blood Pressure [ 114/69 Sitting] Orthostatic Blood Pressure [ 104/70 Supine] Weight - Most Recent: 66.451 kg I&O - Last 24 Hours: Intake & Output 02/19/20 02/20/20 02/20/20 22:59 06:59 14:59 Intake Total 988 150 Output Total 400 450 100 Balance 588 -450 50 Lab Results Last 24 Hours: Laboratory Results - last 24 hr 02/20/20 Range/Units 06:10 Sodium 137 (136-145) mmol/L Potassium 4.0 (3.5-5.1) mmol/L Chloride 103 (98-107) mmol/L Carbon Dioxide 28 (21-32) mmol/L Anion Gap 10.0 (7-13) mEq/L BUN 4 L (7-18) mg/dL Creatinine 0.51 L (0.70-1.30) mg/dL Est Cr Clr Drug Dosing 144.77 mL/min Estimated GFR (MDRD) > 60 Glucose 81 (74-99) mg/dL Calcium 7.6 L (8.5-10.1) mg/dL Phosphorus 4.2 (2.6-4.7) mg/dL Magnesium 1.4 L (1.8-2.4) mg/dL Brown Results Last 24 Hours: Microbiology 02/18/20 11:54 Urine Culture - Final Urine, Clean Catch NO GROWTH AFTER 2 DAYS Med Orders - Current: Current Medications Acetaminophen (Tylenol) 650 mg PO Q4H PRN PRN Reason: Pain (Mild 1-3)/fever Last Admin: 02/19/20 08:31 Dose: 650 mg Documented by: Calcium Carbonate (Calcium Carbonate/Vitamin D 1250 Mg-200 Unit) 1 tab PO BIDMEALS [facility] Last Admin: 02/20/20 08:54 Dose: 1 tab Documented by: Flumazenil (Romazicon) 0.2 mg IVPUSH ASDIRECTED PRN PRN Reason: Respiratory Depression Heparin Sodium (Porcine) (Heparin Sodium) 5,000 units SUBCUT Q8HR [facility] Last Admin: 02/20/20 06:10 Dose: 5,000 units Documented by: Ibuprofen (Motrin) 400 mg PO Q6H PRN PRN Reason: Pain (moderate 4-6) Loperamide HCl (Imodium) 2 mg PO Q6H PRN PRN Reason: Diarrhea Lorazepam (Ativan) 0 mg PO .TITRATE PRN; Protocol PRN Reason: ciwa Last Admin: 02/18/20 22:06 Dose: 2 mg Documented by: Lorazepam (Ativan) 0 mg IVPUSH .TITRATE PRN; Protocol PRN Reason: ciwa Last Admin: 02/17/20 23:08 Dose: 2 mg Documented by: Magnesium Oxide (Magnesium Oxide) 250 mg PO BIDMEALS [facility] Miscellaneous Information (Remove Patch) 1 ea TRDERM DAILY [facility] Last Admin: 02/20/20 08:55 Dose: Not Given Documented by: Nicotine (Habitrol) 14 mg TRDERM DAILY [facility] Last Admin: 02/20/20 08:54 Dose: 14 mg Documented by: Nystatin (Nystop) 0 gm TOP BID [facility] Last Admin: 02/20/20 08:55 Dose: 1 applic Documented by: Ondansetron HCl (Zofran Odt) 4 mg PO Q6H PRN PRN Reason: nausea, able to take PO Ondansetron HCl (Zofran) 4 mg IVPUSH Q6H PRN PRN Reason: Nausea/Vomiting Sodium Chloride (Saline Flush) 10 ml FLUSH ASDIRECTED PRN PRN Reason: Keep Vein Open Last Admin: 02/20/20 10:11 Dose: 10 ml Documented by: Zolpidem Tartrate (Ambien) 5 mg PO BEDTIME PRN PRN Reason: Sleep Last Admin: 02/19/20 21:51 Dose: 5 mg Documented by: Discontinued Medications Docusate Sodium (Colace) 100 mg PO BID PRN PRN Reason: Constipation Folic Acid (Folic Acid) 1 mg PO DAILY [facility] Last Admin: 02/17/20 10:20 Dose: Not Given Documented by: Multivitamins/Minerals 10 ml/Thiamine HCl 100 mg/ Folic Acid 1 mg/ Lactated Ringer's 1,011.2 mls @ 999 mls/hr IV .BOLUS ONE Stop: 02/15/20 18:12 Last Infusion: 02/15/20 18:50 Dose: Infused Documented by: Potassium Chloride 10 meq/ (Premix) 100 mls @ 100 mls/hr IV ONETIME ONE Stop: 02/15/20 18:45 Last Admin: 02/15/20 18:04 Dose: 100 mls/hr Documented by: Potassium Chloride 10 meq/ (Premix) 100 mls @ 100 mls/hr IV ONETIME ONE Stop: 02/15/20 18:46 Last Admin: 02/15/20 18:05 Dose: 100 mls/hr Documented by: Magnesium Sulfate (Magnesium Sulfate In Water Premix) 100 mls @ 100 mls/hr IV ONETIME ONE Stop: 02/15/20 18:46 Last Admin: 02/15/20 18:04 Dose: 100 mls/hr Documented by: Potassium Chloride 10 meq/ (Premix) 100 mls @ 50 mls/hr IV Q2H [facility] Stop: 02/16/20 02:59 Last Infusion: 02/16/20 02:05 Dose: Infused Documented by: Potassium Chloride/Sodium Chloride (Normal Saline With 20 Meq Kcl) 1,000 mls @ 100 mls/hr IV ASDIRECTED [facility] Last Admin: 02/20/20 04:46 Dose: 100 mls/hr Documented by: Potassium Chloride 10 meq/ (Premix) 100 mls @ 50 mls/hr IV Q2H [facility] Stop: 02/16/20 21:29 Last Infusion: 02/17/20 15:08 Dose: Infused Documented by: Potassium Chloride 10 meq/ (Premix) 100 mls @ 50 mls/hr IV Q2H [facility] Stop: 02/17/20 14:59 Last Infusion: 02/17/20 16:21 Dose: Infused Documented by: Potassium Phosphate 15 mmole/ (Sodium Chloride) 255 mls @ 120 mls/hr IV ONETIME ONE Stop: 02/17/20 14:07 Last Infusion: 02/17/20 15:06 Dose: Infused Documented by: Multivitamins/Minerals 10 ml/Folic Acid 1 mg/ Thiamine HCl 100 mg/ Lactated Ringer's 1,011.2 mls @ 999 mls/hr IV DAILY@1200 ONE Stop: 02/17/20 17:00 Last Infusion: 02/17/20 17:22 Dose: 400 mls/hr Documented by: Magnesium Sulfate 2 gm/ Premix 50 mls @ 25 mls/hr IV ONETIME ONE Stop: 02/17/20 16:59 Last Infusion: 02/17/20 17:22 Dose: Infused Documented by: Magnesium Sulfate/Dextrose 2 (gm/ Premix) 200 mls @ 100 mls/hr IV ONETIME ONE Stop: 02/19/20 13:12 Last Infusion: 02/19/20 13:25 Dose: Infused Documented by: Magnesium Sulfate 2 gm/ Premix 50 mls @ 25 mls/hr IV ONETIME ONE Stop: 02/20/20 11:22 Last Admin: 02/20/20 10:11 Dose: 25 mls/hr Documented by: Lidocaine HCl (Xylocaine-Mpf 1%) 30 ml .XX ONETIME ONE Stop: 02/15/20 17:49 Last Admin: 02/15/20 18:06 Dose: 30 ml Documented by: Magnesium Oxide (Magnesium Oxide) 500 mg PO BIDMEALS [facility] Stop: 02/16/20 18:01 Last Admin: 02/16/20 17:35 Dose: 500 mg Documented by: Magnesium Oxide (Magnesium Oxide) 500 mg PO BIDMEALS [facility] Stop: 02/18/20 18:01 Last Admin: 02/18/20 17:32 Dose: 500 mg Documented by: Miscellaneous Information (Remove Patch) 1 ea TRDERM DAILY [facility] Last Admin: 02/17/20 10:24 Dose: 1 ea Documented by: Multivitamins/Minerals (Vitamins And Minerals) 1 tab PO WITHBREAKFAST [facility] Last Admin: 02/17/20 09:22 Dose: Not Given Documented by: Potassium Chloride (Klor-Con 10) 60 meq PO ONETIME ONE Stop: 02/15/20 17:45 Last Admin: 02/15/20 18:05 Dose: 60 meq Documented by: Sodium Phosphate (Neutra-Phos) 500 mg PO TID [facility] Stop: 02/18/20 09:01 Sodium Phosphate (Neutra-Phos) 250 mg PO BID [facility] Stop: 02/19/20 09:01 Last Admin: 02/18/20 08:30 Dose: 250 mg Documented by: Sodium Phosphate (Neutra-Phos) 500 mg PO BID [facility] Stop: 02/19/20 09:01 Last Admin: 02/19/20 08:27 Dose: 500 mg Documented by: Thiamine HCl (Vitamin B-1) 100 mg PO DAILY [facility] Last Admin: 02/17/20 10:20 Dose: Not Given Documented by: - Exam Quality Assessment: DVT Prophylaxis. No: Supplemental Oxygen, Urine Catheter General: Alert, Oriented, Cooperative, No Acute Distress HEENT: Pupils Equal, EOMI, Mucous Membr. Moist/[place] Neck: Supple, No JVD, No Thyromegaly Lungs: Clear to Auscultation, Normal Respiratory Effort Cardiovascular: Regular Rate, Regular Rhythm, Murmurs GI/Abdominal Exam: Normal Bowel Sounds, Soft, Non-Tender. No: Rigid, Rebound (Male) Exam: Deferred Back Exam: Normal Inspection Extremities: Normal Inspection, No Pedal Edema Skin: Warm, Dry, Intact Neurological: No New Focal Deficit Psy/Mental Status: Alert, Normal Affect, Normal Mood Sepsis Event Note - Evaluation Sepsis Screening Result: No Definite Risk - Focused Exam Vital Signs: Vital Signs Temp Pulse Resp BP Pulse Ox 02/20/20 08:17 36.9 C 100 20 134/87 97 - Problem List Review Problem List Initiated/Reviewed/Updated: Yes - My Orders Last 24 Hours: My Active Orders 02/20/20 18:00 Magnesium Oxide 250 mg PO BIDMEALS 02/21/20 07:00 MAGNESIUM [CHEM] Routine - Plan Plan:: 60-year-old who rarely goes to the doctor's. Taking no medication. He has been drinking heavily and daily. He came to ER with generalized weakness, right ankle pain, multiple falls, admitted for acute alcohol withdrawal symptom Impression and Plan: 1. Generalized weakness/poor health maintenance - He had Multiple episodes of falling - This is likely secondary to combination of alcohol abuse and severe electrolyte abnormalities - Manage acute withdrawal symptoms ( on CIWA protocol) - physical and occupational therapy evaluating the pt 2. Severe hypokalemia, hypomagnesemia: this secondary to not eating proper diet and only drinking alcohol - He has received IV potassium, oral magnesium, phosphorus supplement -His potassium acceptable and magnesium is still low, phophorus is acceptable -Will give magnesium sulfate 2 gm IV X 1 dose now and also start oral Magnesium oxide at 250 mg BID -Recheck magnesium in AM 3. Acute Alcohol intoxication. : Resolved - Will stop IV fluids with potassium -recheck renal panel again in AM 4. Chronic Alcohol addiction. - Social Work is evaluate for alcohol treatment programs. 5. Right . ankle pain and swelling - Noted no fracture on Xray -symptomatic management and pain control 6. Diarrhea: Appears improved - Give Imodium as needed 7 . Fever; Over the night had low grade fever but not during the day -Urine culture showing no growth Concern for atelectasis, poor candidate to use IS in his current mental status 8. Anemia of chronic illness: No apparent ongoing bleeding, stool is soft but not black Drop was Likely due to hydration -Has normal iron saturation , normal B12, folate levels -Will transfuse if Hgb is <8 g/dl 9. Deep venous thrombosis (DVT) prophylaxis will be with subcutaneous heparin.
[2020-02-20] MEDS: Zolpidem 5 MG Tab PO PRN (21:45)
[2020-02-21] MEDS: Heparin Sodium 5,000 Units/ML Vial SUBCUT SCH ×3 (05:40→21:05)
[2020-02-21 06:51] LABS: ANION GAP 10.5 mEq/L (7-13); CHLORIDE,CL 103 mmol/L (98-107); SODIUM,NA 138 mmol/L (136-145)
[2020-02-21] MEDS: Calcium Carbonate/Vitamin D3 1250 MG-200 Unit Tab PO SCH ×2 (08:44→18:05)
[2020-02-21] MEDS: Nicotine 14 MG/24 Hr Patch TRDERM SCH (08:45)
[2020-02-21] MEDS: Remove Patch (Nicotine) TRDERM SCH (08:45)
[2020-02-21] MEDS: Nystatin Topical Powder 30 GM Bottle TOP SCH ×2 (08:45→21:04)
--- NOTE | 2020-02-21 10:09 | PN ---
DATE: 02/21/2020 SUBJECTIVE: The patient is a 60-year-old male who was admitted because of alcohol intoxication and alcohol withdrawal symptoms. He is still complaining of right ankle pain (x-rays negative for any fracture), but overall he has been doing well, and so far, has not had any withdrawal symptoms. He will be seen by PT and OT today, and if the patient continues to do well, he will be going home in a.m. The patient denies any headache, chest pain, shortness of breath, nor any other complaints. OBJECTIVE: Vital Signs: Blood pressure is 128/79, pulse of 100, respirations of 16, temperature of 98.7, saturation is 94% on room air. Heart: Regular rate and rhythm. No gallops. No rubs. Lungs: Equal bilaterally. No crackles. No wheezing. ABDOMEN: Mild to moderately obese, but soft, nontender. Bowel sounds positive. Extremities: Negative for any pedal edema or any gross deformities. LAB WORKUP THIS MORNING: Chem-6; calcium is 7.7, magnesium is 1.6. MEDICATIONS: Reviewed. PLAN: We will continue with his present management and continue with magnesium supplementation. Again, PT and OT to see the patient. [facility] /[id number]
[2020-02-21] MEDS: Zolpidem 5 MG Tab PO PRN (21:04)
[2020-02-22] MEDS: Heparin Sodium 5,000 Units/ML Vial SUBCUT SCH (06:17)
[2020-02-22] MEDS: Calcium Carbonate/Vitamin D3 1250 MG-200 Unit Tab PO SCH (09:27)
[2020-02-22] MEDS: Nystatin Topical Powder 30 GM Bottle TOP SCH (09:27)
[2020-02-22] MEDS: Remove Patch (Nicotine) TRDERM SCH (09:27)
[2020-02-22] MEDS: Nicotine 14 MG/24 Hr Patch TRDERM SCH (09:55)
[2020-02-22] MEDS ORDERED: LORazepam 0.5 MG Tab PO PRN (10:14)
--- NOTE | 2020-02-22 10:24 | DISCH ---
FINAL DIAGNOSES: 1. Alcohol withdrawal. 2. Hypomagnesemia. 3. Hypokalemia. 4. Gait instability. 5. Chronic obstructive pulmonary disease. BRIEF HISTORY OF PRESENT ILLNESS: Please see H and P. PERTINENT LABORATORY, X-RAY, AND OTHER TESTS ON ADMISSION: See H and P. CAT scan of the head did not show any acute intracranial finding, but showed microvascular ischemic changes. Chest x-ray unremarkable. X-ray of the right ankle showed some soft tissue swelling, but no fracture. X-ray of the right knee showed no acute findings. HOSPITAL COURSE: The patient was admitted to telemetry. The patient was placed on DT protocol, potassium and magnesium were repleted, and the patient was seen by PT and OT because of his gait instability. Hospital course basically was uncomplicated, and he was subsequently discharged, and he is going to be followed by home health care, and also the patient will be given a prescription with front-wheeled walker with skis for gait instability. CONDITION ON DISCHARGE: Improved. The patient is going to follow up with me in 7 to 10 days at the clinic. Basic metabolic panel prior to discharge, sodium is 138, potassium is 3.5, chloride is 103, carbon dioxide is 28, BUN is 6, creatinine is 0.54, and magnesium level is 1.6. [facility] /[id number]
--- NOTE | 2020-02-22 11:18 | PN ---
DATE: 02/22/2020 SUBJECTIVE: The patient is doing fairly well. The patient denies any significant ongoing complaints. The patient was seen by OT and PT yesterday, and the patient needed a front-wheeled walker with skis for gait instability. He is also going to home health upon discharge but needs [facility] for medication education and compliance as well as PT and OT for strengthening and home safety evaluation. The patient is homebound and requests walker to leave the home. The patient denies any headache, chest pain, shortness of breath, abdominal pain, or any other complaints. OBJECTIVE: Vital Signs: Blood pressure is 125/75, pulse of 89, respirations of 20, temperature of 98, and saturation is 98% on room air. SHEENT: Normocephalic. There are pink palpebral conjunctivae. Sclerae anicteric. No JVD. No lymphadenopathy. Heart: Regular rate and rhythm. Normal S1 and S2. No gallops. No rubs. Lungs: Equal bilaterally. No crackles. No wheezing. Abdomen: Soft, nontender. Extremities: Negative for any pedal edema. No calf tenderness. MEDICATIONS: Reviewed. PLAN: We will discharge the patient home today, and he will be followed by home health, and the patient will be needing a front-wheeled walker with skis for gait instability. He is going to follow up with me in 7 to 10 days at the clinic with laboratory workup. [facility] /[id number]
[2020-02-22 12:33] VITALS: BP 124/71; PULSE 87
== END 2020-02-22 13:14 | disposition home or self-care (01) | DRG 897 ==
LOC: DL.ED 16:55 → DL.MS 18:07 → UNDOADMIN 18:07 → DL.MS 19:07 → UNDOADMIN 02-21 05:00 → DL.MS 02-21 18:01
PROVIDERS: ADMIT Internal Medicine; ATTEND Internal Medicine
DX: R55 Syncope and collapse (principal); F10.239 Alcohol dependence with withdrawal, unspecified; E83.42 Hypomagnesemia; R53.1 Weakness; F10.10 Alcohol abuse, uncomplicated; Y90.9 Presence of alcohol in blood, level not specified; H54.7 Unspecified visual loss; F17.210 Nicotine dependence, cigarettes, uncomplicated; S99.911A Unspecified injury of right ankle, initial encounter; E87.6 Hypokalemia; J44.9 Chronic obstructive pulmonary disease, unspecified; R26.9 Unspecified abnormalities of gait and mobility; F17.200 Nicotine dependence, unspecified, uncomplicated; F10.229 Alcohol dependence with intoxication, unspecified; M25.572 Pain in left ankle and joints of left foot; D64.9 Anemia, unspecified; Z90.49 Acquired absence of other specified parts of digestive tract; Y90.0 Blood alcohol level of less than 20 mg/100 ml
CPT/HCPCS: 36415; 70450; 71045; 73560; 73610; 80053; 80307; 82550; 83735; 84484; 85025; 85379; 85610; 85730; 93005; 93010; 99284; 99285; A9270; J2001; J3411; J3475; J3480 ×2; J7120; 51701; 80048; 80305-QW; 81001; 81003; 82607; 82746; 83540; 83550; 84100; 87086; 97116-GP; 97162-GP; 97166-GO; 97530-GO; 99221; 99232; 99238; J1644; J2060; J3490; J7050

== ENCOUNTER 2020-11-27 16:12 | Emergency (ER) | payer MEDICARE ==
[2020-11-27] MEDS ORDERED: Sodium Chloride 0.9% 10 ML Syringe IV ONE (16:13)
[2020-11-27] MEDS ORDERED: Ondansetron 4 MG/2 ML SDV IV ONE (16:13)
[2020-11-27] MEDS ORDERED: Succinylcholine 200 MG/10 ML MDV IV ONE (16:13)
[2020-11-27] MEDS ORDERED: EPINEPHrine 1:10,000 1 MG/10 ML Syringe IV ONE (16:13)
[2020-11-27] MEDS ORDERED: Pantoprazole 40 MG Vial IV ONE (16:13)
[2020-11-27] MEDS ORDERED: Sodium Bicarbonate 8.4% 50 MEQ/50 ML Syringe IV ONE (16:13)
[2020-11-27] MEDS ORDERED: Etomidate 2 MG/ML 20 ML SDV IVPUSH ONE (16:13)
[2020-11-27] MEDS ORDERED: Vasopressin 20 Units/1 ML MDV IV ONE (16:13)
[2020-11-27] MEDS ORDERED: Pantoprazole 40 MG Vial IVPUSH ONE (16:13)
[2020-11-27] MEDS ORDERED: Amiodarone 150 MG/3 ML SDV IV ONE (16:13)
[2020-11-27] MEDS ORDERED: MVI, Adult with Vitamin K 10 ML, Thiamine 100 MG, Folic Acid 1 MG in Lactated Ringers 1... IV ONE ×4 (16:13)
[2020-11-27] MEDS ORDERED: Ondansetron 4 MG/2 ML SDV IVPUSH ONE (16:15)
[2020-11-27 16:34] VITALS: BP 147/80; PULSE 110
[2020-11-27] MEDS ORDERED: Norepinephrine 4 MG in Dextrose 5% in Water 246 ML IV SCH ×2 (17:00)
[2020-11-27 17:11] LABS: CHLORIDE,CL 85 mmol/L (98-107); SODIUM,NA 127 mmol/L (136-145)
[2020-11-27] MEDS ORDERED: Vasopressin 20 Units/1 ML MDV ONE ×2 (17:51→21:13)
[2020-11-27 17:53] LABS: ANION GAP 40.4 mEq/L (7-13)
[2020-11-27 18:43] LABS: PTT,PARTIAL THROMBOPLSTIN TIME 119.5 SEC (22.0-34.0)
--- NOTE | 2020-11-27 19:59 | EDM.PDOC ---
ED HPI GENERAL MEDICAL PROBLEM - General Chief Complaint: Gastrointestinal Problem Stated Complaint: AMBULANCE Time Seen by Provider: 11/27/20 16:30 Source of Information: Reports: Patient, EMS, RN, RN Notes Reviewed History Limitations: Reports: Altered Mental Status - History of Present Illness INITIAL COMMENTS - FREE TEXT/NARRATIVE: Benson is a 60 y/o male who presents to the ED via [facility] per family request due to altered mental status. Per EMS report, the patient's mother stated he was vomiting up dark emesis last night. She states he is a chronic alcohol drinker but became concerned when he was not making sense when she was talking to him tonight. Upon arrival to this facility the patient is lethargic but opens eyes to commands, he is able to state his name. He is unable to offer history of his symptoms as his speech is mumbled. - Related Data Allergies Allergy/AdvReac Type Severity Reaction Status Date / Time No Known Allergies Allergy Verified 02/15/20 18:21 Home Meds: Home Meds Magnesium Oxide 250 mg PO BIDMEALS 30 Days #60 tablet 02/22/20 [Rx] Past Medical History HEENT History: Reports: Impaired Vision Cardiovascular History: Reports: None Respiratory History: Reports: None Gastrointestinal History: Reports: None Genitourinary History: Reports: None Neurological History: Reports: None Psychiatric History: Reports: Addiction Endocrine/Metabolic History: Reports: None Hematologic History: Reports: None Immunologic History: Reports: None Oncologic (Cancer) History: Reports: None Dermatologic History: Reports: None - Infectious Disease History Infectious Disease History: Reports: None - Past Surgical History Cardiovascular Surgical History: Reports: None Respiratory Surgical History: Reports: None GI Surgical History: Reports: Appendectomy, Hernia Repair/Other Neurological Surgical History: Reports: None Musculoskeletal Surgical History: Reports: Shoulder Surgery, Other (See Below) Other Musculoskeletal Surgeries/Procedures:: surgery 2017 - hand and arm still go numb and pt unable to lift a gallon of milk Social & Family History - Family History Family Medical History: No Pertinent Family History - Caffeine Use Caffeine Use: Reports: Coffee, Energy Drinks, Soda, Tea ED ROS GENERAL - Review of Systems Review Of Systems: Unable To Obtain Reason Not Obtained: Altered mental status ED EXAM, GI/ABD - Physical Exam Exam: See Below Exam Limited By: Altered Mental Status General Appearance: No Apparent Distress, Lethargic, Thin. No: Active Emesis Eyes: Bilateral: EOMI (Scleral icterus) Throat/Mouth: Normal Voice, No Airway Compromise. No: Normal Lips (Dry, cr acked), Normal Teeth (Poor dentition), Normal Oropharynx (Dry mucous membranes) Head: Atraumatic, Normocephalic Neck: Normal Inspection, Supple, Non-Tender, Full Range of Motion Respiratory/Chest: Lungs Clear, Chest Non-Tender, Decreased Breath Sounds. No: Crackles, Rales, Rhonchi, Wheezing, Stridor Cardiovascular: Normal Peripheral Pulses, Regular Rate, Rhythm, No Edema, No Gallop, No JVD, No Murmur, No Rub, Tachycardia GI/Abdominal Exam: No Abnormal Bruit, No Mass, Pelvis Stable, Distended, Abnormal Bowel Sounds (Hypoactive bowel sounds). No: Guarding, Rigid, Rebound (Male) Exam: No Hernia, Normal Inspection, Circumcised Rectal (Males) Exam: Normal Rectal Tone, Black Stool, Heme + Stool. No: Mass Back Exam: Normal Inspection, Full Range of Motion Extremities: Normal Inspection, Normal Range of Motion, Non-Tender, No Pedal Edema, Normal Capillary Refill Neurological: Confused, Slow to Respond, Memory Loss Remote Events, Memory Loss Recent Events Psychiatric: Normal Affect, Normal Mood Skin Exam: Dry, Intact, No Rash, Cool, Mottled (To bilateral lower anterior extremities), Pallor. No: Ecchymosis, Erythema, Petechiae Lymphatic: No Adenopathy #1 Interpretation EKG Date: 11/27/20 Time: 16:37 Rhythm: NSR Rate (Beats/Min): 99 Henry: Other (BRIANA d/t incomplete EKG) P-Wave: Present QRS: RBBB ST-T: Normal QT: Prolonged (497) AR/PQ Interval: 0.171 Comparison: NA - No Prior EKG EKG Interpretation Comments: Incomplete EKG d/t poor technique Course - Vital Signs Last Recorded V/S: Last Vital Signs Temp 97.4 F 11/27/20 16:27 Pulse 110 H 11/27/20 16:27 Resp 20 11/27/20 16:27 BP 147/80 H 11/27/20 16:27 Pulse Ox 96 11/27/20 16:27 - Orders/Labs/Meds Labs: Laboratory Tests 11/27/20 11/27/20 11/27/20 Range/Units 16:30 16:30 16:30 WBC 7.8 (5.0-10.0) 10^3/uL RBC 2.62 L (4.6-6.2) 10^6/uL Hgb 9.3 L (14.0-18.0) g/dL Hct 30.6 L (40.0-54.0) % MCV 116.8 H D (80-100) fL MCH 35.5 H (27.0-34.0) pg MCHC 30.4 L (33.0-35.0) g/dL Plt Count 60 L D (150-450) 10^3/uL Neut % (Auto) 82.0 H (42.2-75.2) % Lymph % (Auto) 9.5 L (20.5-50.1) % Island % (Auto) 8.4 H (2-8) % Eos % (Auto) 0.0 L (1.0-3.0) % Baso % (Auto) 0.1 (0.0-1.0) % PT (9.0-12.0) SEC INR (0.9-1.2) APTT (22.0-34.0) SEC Sodium 127 L D (136-145) mmol/L Potassium 5.4 H D (3.5-5.1) mmol/L Chloride 85 L D (98-107) mmol/L Carbon Dioxide 7 L* D (21-32) mmol/L Anion Gap 40.4 H (7-13) mEq/L BUN 23 H (7-18) mg/dL Creatinine 2.97 H D (0.70-1.30) mg/dL Est Cr Clr Drug Dosing 21.29 mL/min Estimated GFR (MDRD) 22 BUN/Creatinine Ratio 7.7 (No establ ref range) Glucose 77 (70-99) mg/dL POC Glucose (70-99) mg/dL Lactic Acid (0.4-2.0) mmol/L Calcium 6.7 L (8.5-10.1) mg/dL Magnesium 2.0 (1.8-2.4) mg/dL Total Bilirubin 2.0 H (0.2-1.0) mg/dL AST 353 H (15-37) U/L ALT 71 H (16-63) U/L Alkaline Phosphatase 62 (46-116) U/L Troponin I 0.232 H* (0.000-0.056) ng/mL C-Reactive Protein < 0.2 (0.0-0.9) mg/dL B-Natriuretic Peptide 172 H (0-100) pg/ml Total Protein 4.5 L (6.4-8.2) g/dL Albumin 2.0 L (3.4-5.0) g/dL Globulin 2.5 Albumin/Globulin Ratio 0.80 Ethyl Alcohol 160 (0) mg/dL SARS-CoV-2 RNA (AHMET) (NEGATIVE) Blood Type A NEGATIVE Gel Antibody Screen Negative Crossmatch See Detail 11/27/20 11/27/20 11/27/20 Range/Units 16:30 17:30 17:50 WBC (5.0-10.0) 10^3/uL RBC (4.6-6.2) 10^6/uL Hgb (14.0-18.0) g/dL Hct (40.0-54.0) % MCV (80-100) fL MCH (27.0-34.0) pg MCHC (33.0-35.0) g/dL Plt Count (150-450) 10^3/uL Neut % (Auto) (42.2-75.2) % Lymph % (Auto) (20.5-50.1) % Island % (Auto) (2-8) % Eos % (Auto) (1.0-3.0) % Baso % (Auto) (0.0-1.0) % PT 17.6 H D (9.0-12.0) SEC INR 1.8 H (0.9-1.2) APTT 119.5 H* (22.0-34.0) SEC Sodium (136-145) mmol/L Potassium (3.5-5.1) mmol/L Chloride (98-107) mmol/L Carbon Dioxide (21-32) mmol/L Anion Gap (7-13) mEq/L BUN (7-18) mg/dL Creatinine (0.70-1.30) mg/dL Est Cr Clr Drug Dosing mL/min Estimated GFR (MDRD) BUN/Creatinine Ratio (No establ ref range) Glucose (70-99) mg/dL POC Glucose 87 (70-99) mg/dL Lactic Acid (0.4-2.0) mmol/L Calcium (8.5-10.1) mg/dL Magnesium (1.8-2.4) mg/dL Total Bilirubin (0.2-1.0) mg/dL AST (15-37) U/L ALT (16-63) U/L Alkaline Phosphatase (46-116) U/L Troponin I (0.000-0.056) ng/mL C-Reactive Protein (0.0-0.9) mg/dL B-Natriuretic Peptide (0-100) pg/ml Total Protein (6.4-8.2) g/dL Albumin (3.4-5.0) g/dL Globulin Albumin/Globulin Ratio Ethyl Alcohol (0) mg/dL SARS-CoV-2 RNA (AHMET) Negative (NEGATIVE) Blood Type Gel Antibody Screen Crossmatch 11/27/20 11/27/20 Range/Units 17:50 18:51 WBC (5.0-10.0) 10^3/uL RBC (4.6-6.2) 10^6/uL Hgb 9.9 L (14.0-18.0) g/dL Hct (40.0-54.0) % MCV (80-100) fL MCH (27.0-34.0) pg MCHC (33.0-35.0) g/dL Plt Count (150-450) 10^3/uL Neut % (Auto) (42.2-75.2) % Lymph % (Auto) (20.5-50.1) % Island % (Auto) (2-8) % Eos % (Auto) (1.0-3.0) % Baso % (Auto) (0.0-1.0) % PT (9.0-12.0) SEC INR (0.9-1.2) APTT (22.0-34.0) SEC Sodium (136-145) mmol/L Potassium (3.5-5.1) mmol/L Chloride (98-107) mmol/L Carbon Dioxide (21-32) mmol/L Anion Gap (7-13) mEq/L BUN (7-18) mg/dL Creatinine (0.70-1.30) mg/dL Est Cr Clr Drug Dosing mL/min Estimated GFR (MDRD) BUN/Creatinine Ratio (No establ ref range) Glucose (70-99) mg/dL POC Glucose (70-99) mg/dL Lactic Acid 24.0 H* (0.4-2.0) mmol/L Calcium (8.5-10.1) mg/dL Magnesium (1.8-2.4) mg/dL Total Bilirubin (0.2-1.0) mg/dL AST (15-37) U/L ALT (16-63) U/L Alkaline Phosphatase (46-116) U/L Troponin I (0.000-0.056) ng/mL C-Reactive Protein (0.0-0.9) mg/dL B-Natriuretic Peptide (0-100) pg/ml Total Protein (6.4-8.2) g/dL Albumin (3.4-5.0) g/dL Globulin Albumin/Globulin Ratio Ethyl Alcohol (0) mg/dL SARS-CoV-2 RNA (AHMET) (NEGATIVE) Blood Type Gel Antibody Screen Crossmatch Meds: Medications Discontinued Medications Generic Name Dose Route Start Last Admin Trade Name Freq PRN Reason Stop Dose Admin Amiodarone HCl Confirm 11/27/20 20:17 Amiodarone 150 Mg/3 Ml Sdv Administered 11/27/20 20:18 Dose 300 mg .ROUTE .STK-MED ONE Amiodarone HCl 300 mg 11/27/20 16:13 Amiodarone 150 Mg/3 Ml Sdv IV 11/27/20 16:14 .STK-MED ONE Epinephrine HCl Confirm 11/27/20 20:18 Epinephrine 1:10,000 1 Mg/10 Ml Syringe Administered 11/27/20 20:19 Dose 5 mg .ROUTE .STK-MED ONE Epinephrine HCl 1 mg 11/27/20 16:13 Epinephrine 1:10,000 1 Mg/10 Ml Syringe IV 11/27/20 16:14 .STK-MED ONE Etomidate 20 mg 11/27/20 16:13 Etomidate 2 Mg/Ml 20 Ml Sdv IVPUSH 11/27/20 16:14 .STK-MED ONE Multivitamins/Minerals 10 ml/ 1,011.2 mls @ 999 mls/hr 11/27/20 16:13 Thiamine HCl 100 mg/ Folic IV 11/27/20 17:13 Acid 1 mg/ Lactated Ringer's .BOLUS ONE Norepinephrine Bitartrate 4 mg 250 mls @ 7.5 mls/hr 11/27/20 17:00 / Dextrose/Water IV TITRATE ASPEN Protocol 2 MCG/MIN Epinephrine HCl 1 mg/ Sodium 251 mls @ 15.06 mls/hr 11/27/20 18:45 Chloride IV TITRATE ASPEN Protocol 1 MCG/MIN Norepinephrine Bitartrate 4 mg 254 mls @ as directed 11/27/20 16:13 / Sodium Chloride IV 11/27/20 16:14 .STK-MED ONE Ondansetron HCl 4 mg 11/27/20 16:15 Ondansetron 4 Mg/2 Ml Sdv IVPUSH 11/27/20 16:16 ONETIME ONE Ondansetron HCl 4 mg 11/27/20 16:13 Ondansetron 4 Mg/2 Ml Sdv IV 11/27/20 16:14 .STK-MED ONE Pantoprazole Sodium 40 mg 11/27/20 16:13 Pantoprazole 40 Mg Vial IVPUSH 11/27/20 16:14 ONETIME ONE Pantoprazole Sodium 40 mg 11/27/20 16:13 Pantoprazole 40 Mg Vial IV 11/27/20 16:14 .STK-MED ONE Sodium Bicarbonate Confirm 11/27/20 20:17 Sodium Bicarbonate 8.4% 50 Meq/50 Ml Syringe Administered 11/27/20 20:18 Dose 50 meq .ROUTE .STK-MED ONE Sodium Bicarbonate 50 meq 11/27/20 16:13 Sodium Bicarbonate 8.4% 50 Meq/50 Ml Syringe IV 11/27/20 16:14 .STK-MED ONE Sodium Chloride 20 ml 11/27/20 16:13 Sodium Chloride 0.9% 10 Ml Syringe IV 11/27/20 16:14 .STK-MED ONE Succinylcholine Chloride 140 mg 11/27/20 16:13 Succinylcholine 200 Mg/10 Ml Mdv IV 11/27/20 16:14 .STK-MED ONE Vasopressin Confirm 11/27/20 17:51 Vasopressin 20 Units/1 Ml Mdv Administered 11/27/20 17:52 Dose 20 units .ROUTE .STK-MED ONE Vasopressin Confirm 11/27/20 21:13 Vasopressin 20 Units/1 Ml Mdv Administered 11/27/20 21:14 Dose 20 units .ROUTE .STK-MED ONE Vasopressin 40 units 11/27/20 16:13 Vasopressin 20 Units/1 Ml Mdv IV 11/27/20 16:14 .STK-MED ONE - Re-Assessments/Exams Free Text/Narrative Re-Assessment/Exam: 11/27/20 NS bolus 1L ordered. Levophed gtt ordered to start at 6 mcg/kg/hr ED staff attempting to place IV and draw lab, however are unsuccessful. Will place IO x2 while waiting for [employer] COMMISSIONER. Case discussed with [facility], no ICU beds available. Case discussed with Dr. Jefferson, switchgear repairer at [facility]. Will update Dr. Jefferson as popeye ent is currently receiving CPR. Dr. Eng here to assist with Code. ROSC obtained. Brass Sorter discussed case with patient's mother who states the patient will be DNR from this point. Patient currently on maxed on drip rates of Levophed, Vasopressin, and Phenylephrine. He has received 4L of IVF and 2 units of PRBCs. Unable to maintain blood pressure greater than 50 SBP, therefore unable to transfer via Dr. Jefferson. Current situation discussed with patient's mother who has decided to withdraw care. Discussed with team. Drips stopped and patient extubated. Time of : 1946 Departure - Departure Time of Disposition: 19:47 Disposition: 20 Clinical Impression: Elevated troponin, Lactic acidosis, Acute respiratory failure Qualifiers: Respiratory failure complication: hypoxia Qualified Code(s): J96.01 - Acute respiratory failure with hypoxia GI bleed Qualifiers: GI bleed type/associated pathology: unspecified gastrointestinal hemorrhage type Qualified Code(s): K92.2 - Gastrointestinal hemorrhage, unspecified - Discharge Information Referrals: PCP,None [Primary Care Provider] - Forms: ED Department Discharge Sepsis Event Note (ED) - Evaluation Sepsis Screening Result: No Definite Risk
[2020-11-27] MEDS ORDERED: Amiodarone 150 MG/3 ML SDV ONE (20:17)
[2020-11-27] MEDS ORDERED: Sodium Bicarbonate 8.4% 50 MEQ/50 ML Syringe ONE (20:17)
[2020-11-27] MEDS ORDERED: EPINEPHrine 1:10,000 1 MG/10 ML Syringe ONE (20:18)
== END 2020-11-27 19:47 | disposition expired ==
LOC: DL.ED 16:12
DX: K92.2 Gastrointestinal hemorrhage, unspecified (principal); J96.01 Acute respiratory failure with hypoxia; E87.2 Acidosis; R79.89 Other specified abnormal findings of blood chemistry; Z20.822 Contact with and (suspected) exposure to COVID-19
CPT/HCPCS: 36410; 36415; 36430; 80053; 80307; 82272; 82947; 83605; 83735; 83880; 84484; 85018; 85025; 85610; 85730; 86140; 86850; 86900; 86901; 86920; 86922; 93005; 99285-25; C9113; J0171; J0282; J0330; J2405; J3411; J3490; J7050; J7120; P9016; U0002